=== PATIENT | female | born 1980 | race Caucasian/White ===

== ENCOUNTER 2016-12-19 17:04 | Emergency (ER) | payer MEDICARE, MEDICAID ==
[~2016-12-19] VITALS: Ht 167.6 cm; Wt 125.2 kg
[2016-12-19] MEDS ORDERED: FLUO20CA9 (17:19)
[2016-12-19] MEDS ORDERED: VITA50003 (17:19)
[2016-12-19] MEDS ORDERED: GABA-282 PO (17:19)
[2016-12-19] MEDS ORDERED: FLUT1SPR2 (17:19)
[2016-12-19] MEDS ORDERED: ALPR0.5T3 PO (17:19)
[2016-12-19] MEDS ORDERED: FERR325T (17:19)
[2016-12-19] MEDS ORDERED: METH20TA29 (17:19)
[2016-12-19] MEDS ORDERED: OMEP40CA2 (17:19)
[2016-12-19] MEDS ORDERED: ARIP1TAB6 (17:19)
[2016-12-19] MEDS ORDERED: LISI10TA4 (17:19)
[2016-12-19] MEDS ORDERED: ALBU17IN (17:19)
[2016-12-19] MEDS ORDERED: IBUP80TA (17:19)
--- NOTE | 2016-12-19 18:20 | REPUSA ---
CT of the head Clinical history: Headache. Technique: Multiple axial CT images were obtained through the head without administration of contrast . Findings: The ventricles and sulci are symmetric bilaterally. There is no evidence of acute hemorrhag e or infarct. There is no midline shift, mass effect, or extra-axial fluid collection. The osseous st ructures are unremarkable. The visualized paranasal sinuses and mastoid air cells are clear. Impression: Negative study.
[2016-12-19] MEDS ORDERED: ACETAMINOPHEN 325 MG TAB PO ONE (18:45)
[2016-12-19] MEDS ORDERED: KETOROLAC 30 MG/ML VIAL (J1885) IV ONE (20:00)
[2016-12-19] MEDS ORDERED: METOCLOPRAMIDE INJ 10MG/2ML VIAL (J2765) IV ONE (20:00)
[2016-12-19] MEDS ORDERED: NS 1,000 ML IV ONE (20:00)
[2016-12-19 21:08] VITALS: BP 120/74
== END 2016-12-19 21:29 | disposition home or self-care (01) ==
LOC: M ED 17:58
DX: G43.809 Other migraine, not intractable, without status migrainosus (principal); M79.7 Fibromyalgia; K21.9 Gastro-esophageal reflux disease without esophagitis; F41.9 Anxiety disorder, unspecified; F33.9 Major depressive disorder, recurrent, unspecified; F43.10 Post-traumatic stress disorder, unspecified; F90.9 Attention-deficit hyperactivity disorder, unspecified type; Z79.899 Other long term (current) drug therapy
CPT/HCPCS: 70450; 96374; 96375; 99282; J1885; J2765

== ENCOUNTER → 2017-05-08 | Outpatient (REF) | payer MEDICARE, MEDICAID ==
[~2017-05-08] MED LIST: ALBU17IN; ALPR0.5T3 PO; ARIP1TAB6; FERR1TAB8; FLUO20CA19; FLUT1SPR2; GABA-282 PO; IBUP80TA; LISI10TA4; METH20TA29; OMEP40CA2; VITA1CAP40
[2017-05-08 16:35] LABS: ALBUMIN 3.7 GM/DL (3.2-5.2); ALBUMIN/GLOBULIN RATIO 1.06 (1.00-1.93); ALKALINE PHOSPHATASE 113 U/L (45-117); ALT/SGPT 25 U/L (12-78); ANION GAP 9 MEQ/L (8-16); AST/SGOT 12 U/L (15-37); BILIRUBIN,TOTAL 0.3 MG/DL (0.2-1.0); BLOOD UREA NITROGEN 10 MG/DL (7-18); CALCIUM LEVEL 8.9 MG/DL (8.5-10.1); CARBON DIOXIDE LEVEL 29 MEQ/L (21-32); CHLORIDE LEVEL 106 MEQ/L (98-107); CHOLESTEROL LEVEL 229 MG/DL (<200); CREATININE FOR GFR 0.79 MG/DL (0.55-1.02); FERRITIN 37 NG/ML (8-252); GLOMERULAR FILTRATION RATE > 60.0 (>60); GLUCOSE, FASTING 85 MG/DL (70-105); SODIUM LEVEL 144 MEQ/L (136-145); TOTAL PROTEIN 7.2 GM/DL (6.4-8.2); TRIGLYCERIDES LEVEL 115 MG/DL (<150)
[2017-05-08 16:47] LABS: BASO % 0.4 % (0.0-1.0); EOS # 0.2 K/mm3 (0.0-0.50); EOS % 1.5 % (0.0-3.0); LYMPH # 2.4 K/mm3 (1.5-4.5); LYMPH % 19.9 % (24.0-44.0); MEAN CORPUSCULAR HEMOGLOBIN 28.8 pg (27.0-33.0); MEAN CORPUSCULAR VOLUME 87.2 fl (80.0-96.0); MONO # 0.4 K/mm3 (0.0-0.8); MONO % 3.8 % (0.0-5.0); NEUTROPHILS # 8.6 K/mm3 (1.8-7.7); NEUTROPHILS % 73.7 % (36.0-66.0); RED CELL DISTRIBUTION WIDTH 13.3 % (11.5-14.5); WHITE BLOOD COUNT 11.6 K/mm3 (4.0-10.0)
== END ==
LOC: M LABDRAW1 13:43
PROVIDERS: ATTEND Physician Assistant Medical
DX: E78.2 Mixed hyperlipidemia (principal); D64.9 Anemia, unspecified; F41.1 Generalized anxiety disorder; E55.9 Vitamin D deficiency, unspecified

== ENCOUNTER → 2017-09-21 | Outpatient (REF) | payer MEDICARE, MEDICAID ==
[2017-09-21 16:14] LABS: BASO # 0.1 10^3/uL (0.0-0.2); BASO % 0.5 % (0.0-1.0); EOS # 0.1 10^3/uL (0.0-0.50); EOS % 0.9 % (0.0-3.0); HEMATOCRIT 36.9 % (36.0-47.0); HEMOGLOBIN 12.1 g/dl (12.0-16.0); IMMATURE GRANULOCYTE % 0.3 % (0-0); LYMPH # 2.5 10^3/uL (1.5-4.5); MEAN CORPUSCULAR HEMOGLOBIN 28.9 pg (27.0-33.0); MEAN CORPUSCULAR HGB CONC 32.8 g/dl (32.0-36.5); MEAN CORPUSCULAR VOLUME 88.1 fl (80.0-96.0); MONO # 0.6 10^3/uL (0.0-0.8); MONO % 4.1 % (0.0-5.0); NEUTROPHILS # 10.7 10^3/uL (1.8-7.7); NEUTROPHILS % 76.2 % (36.0-66.0); PLATELET COUNT, AUTOMATED 420 10^3/uL (150-450); RED BLOOD COUNT 4.19 10^6/uL (4.00-5.40); RED CELL DISTRIBUTION WIDTH 12.7 % (11.5-14.5)
[2017-09-21 16:37] LABS: ESTIMATED AVERAGE GLUCOSE 120 MG/DL (60-110); HEMOGLOBIN A1c 5.8 %
[2017-09-21 16:47] LABS: ALBUMIN 3.9 GM/DL (3.2-5.2); ALBUMIN/GLOBULIN RATIO 1.11 (1.00-1.93); ALKALINE PHOSPHATASE 96 U/L (45-117); ALT/SGPT 21 U/L (12-78); ANION GAP 5 MEQ/L (8-16); AST/SGOT 11 U/L (7-37); BILIRUBIN,TOTAL 0.1 MG/DL (0.2-1.0); BLOOD UREA NITROGEN 12 MG/DL (7-18); CALCIUM LEVEL 8.5 MG/DL (8.5-10.1); CARBON DIOXIDE LEVEL 29 MEQ/L (21-32); CHLORIDE LEVEL 106 MEQ/L (98-107); CHOLESTEROL LEVEL 232 MG/DL (<200); CHOLESTEROL RISK RATIO 6.628 (<5); CREATININE FOR GFR 0.82 MG/DL (0.55-1.30); GLOMERULAR FILTRATION RATE > 60.0 (>60); GLUCOSE, FASTING 92 MG/DL (70-100); HDL CHOLESTEROL 35 MG/DL (>40); LDL CHOLESTEROL 172.8 MG/DL (<100); NON-HDL-C 197 MG/DL; POTASSIUM SERUM 4.5 MEQ/L (3.5-5.1); SODIUM LEVEL 140 MEQ/L (136-145); TOTAL PROTEIN 7.4 GM/DL (6.4-8.2); TRIGLYCERIDES LEVEL 121 MG/DL (<150)
[2017-09-21 17:20] LABS: TOTAL 25(OH) VITAMIN D 13.6 NG/ML (30.0-100.0); VITAMIN B12 LEVEL 344 PG/ML (247-911)
== END ==
LOC: M LABDRAW1 15:49
DX: F31.9 Bipolar disorder, unspecified (principal); Z79.899 Other long term (current) drug therapy
CPT/HCPCS: 84443

== ENCOUNTER 2017-11-22 16:32 | Emergency (ER) | payer MEDICAID, MEDICARE ==
[2017-11-22] MEDS: MORPHINE 4 MG/ML 1ML VIAL/SYRINGE (J2270) IV ×2 (18:00→21:07)
[2017-11-22] MEDS: NS 1,000 ML IV ×2 (18:00)
[2017-11-22] MEDS: MORPHINE 4 MG/ML 1ML VIAL (J2270) IV ×2 (18:00→21:07)
[2017-11-22] MEDS: ONDANSETRON 4MG/2ML VIAL (J2405) IV ×2 (18:00)
[2017-11-22] MEDS: AMPICILLIN SOD/SULBACTAM SOD 3 GM in D5W MINI-BAG PLUS 100 ML IV (18:00)
[2017-11-22 19:52] LABS: BASO # 0.1 10^3/uL (0.0-0.2); BASO % 0.4 % (0.0-1.0); EOS # 0.1 10^3/uL (0.0-0.50); EOS % 0.9 % (0.0-3.0); HEMATOCRIT 36.4 % (36.0-47.0); IMMATURE GRANULOCYTE % 0.4 % (0-3.0); LYMPH % 21.2 % (24.0-44.0); MEAN CORPUSCULAR HEMOGLOBIN 28.8 pg (27.0-33.0); MEAN CORPUSCULAR VOLUME 87.3 fl (80.0-96.0); MONO # 0.6 10^3/uL (0.0-0.8); MONO % 4.6 % (0.0-5.0); NEUTROPHILS # 10.1 10^3/uL (1.8-7.7); NEUTROPHILS % 72.5 % (36.0-66.0); PLATELET COUNT, AUTOMATED 372 10^3/uL (150-450); RED BLOOD COUNT 4.17 10^6/uL (4.00-5.40); RED CELL DISTRIBUTION WIDTH 13.1 % (11.5-14.5); WHITE BLOOD COUNT 13.9 10^3/uL (4.0-10.0)
[2017-11-22] MEDS ORDERED: ISOVUE-370 76% 100ML VIAL (Q9967) As Ordered ×2 (20:24)
[2017-11-22 20:25] LABS: ANION GAP 8 MEQ/L (8-16); BLOOD UREA NITROGEN 9 MG/DL (7-18); C REACTIVE PROTEIN QUANTITATIV 3.16 MG/DL (0.00-0.30); CALCIUM LEVEL 8.5 MG/DL (8.5-10.1); CARBON DIOXIDE LEVEL 28 MEQ/L (21-32); CHLORIDE LEVEL 108 MEQ/L (98-107); CREATININE FOR GFR 0.84 MG/DL (0.55-1.30); GLOMERULAR FILTRATION RATE > 60.0 (>60); GLUCOSE, FASTING 82 MG/DL (70-100); POTASSIUM SERUM 3.8 MEQ/L (3.5-5.1); SODIUM LEVEL 144 MEQ/L (136-145)
[2017-11-22] MEDS: ACETAMINOPH W/CODEINE #3 TAB UD PO ×2 (22:16)
== END 2017-11-22 22:35 | disposition home or self-care (01) ==
LOC: M ED 16:32
DX: K04.7 Periapical abscess without sinus (principal); K02.9 Dental caries, unspecified; S02.5XXA Fracture of tooth (traumatic), initial encounter for closed fracture; X58.XXXA Exposure to other specified factors, initial encounter; Y92.89 Other specified places as the place of occurrence of the external cause; I10 Essential (primary) hypertension; M79.7 Fibromyalgia; J45.909 Unspecified asthma, uncomplicated; K58.9 Irritable bowel syndrome, unspecified; Z79.899 Other long term (current) drug therapy
CPT/HCPCS: J2270

== ENCOUNTER 2018-06-22 05:18 | Emergency (ER) | payer MEDICAID, MEDICARE, SELFPAY ==
[2018-06-22] MEDS: NS 500 ML IV ×3 (06:30)
[2018-06-22] MEDS: MORPHINE 4 MG/ML 1ML VIAL/SYRINGE (J2270) IV ×3 (06:30)
[2018-06-22 06:47] LABS: BASO # 0.1 10^3/uL (0.0-0.2); BASO % 0.4 % (0.0-1.0); EOS # 0.1 10^3/uL (0.0-0.50); EOS % 0.5 % (0.0-3.0); HEMATOCRIT 39.1 % (36.0-47.0); HEMOGLOBIN 12.8 g/dl (12.0-15.5); IMMATURE GRANULOCYTE % 0.7 % (0-3.0); LYMPH # 2.4 10^3/uL (1.5-4.5); LYMPH % 15.8 % (24.0-44.0); MEAN CORPUSCULAR HEMOGLOBIN 28.6 pg (27.0-33.0); MEAN CORPUSCULAR HGB CONC 32.7 g/dl (32.0-36.5); MEAN CORPUSCULAR VOLUME 87.3 fl (80.0-96.0); MONO # 0.6 10^3/uL (0.0-0.8); MONO % 4.2 % (0.0-5.0); NEUTROPHILS # 11.7 10^3/uL (1.8-7.7); NEUTROPHILS % 78.4 % (36.0-66.0); PLATELET COUNT, AUTOMATED 396 10^3/uL (150-450); RED BLOOD COUNT 4.48 10^6/uL (4.00-5.40); RED CELL DISTRIBUTION WIDTH 13.7 % (11.5-14.5); WHITE BLOOD COUNT 14.9 10^3/uL (4.0-10.0)
[2018-06-22 06:52] LABS: CONTROL LINE HCG INT CTR LINE PRESENT; HCG, SERUM QUALITATIVE NEGATIVE (NEGATIVE)
[2018-06-22 06:59] LABS: LACTIC ACID SEPSIS PROTOCOL 1.7 MMOL/L (0.4-2.0)
[2018-06-22 07:05] LABS: ALBUMIN/GLOBULIN RATIO 1.08 (1.00-1.93); ALKALINE PHOSPHATASE 114 U/L (45-117); ALT/SGPT 34 U/L (12-78); ANION GAP 9 MEQ/L (8-16); AST/SGOT 26 U/L (7-37); BILIRUBIN,DIRECT < 0.1 MG/DL (0.0-0.2); BILIRUBIN,TOTAL 0.4 MG/DL (0.2-1.0); BLOOD UREA NITROGEN 7 MG/DL (7-18); CALCIUM LEVEL 9.3 MG/DL (8.5-10.1); CARBON DIOXIDE LEVEL 26 MEQ/L (21-32); CHLORIDE LEVEL 104 MEQ/L (98-107); CREATININE FOR GFR 0.94 MG/DL (0.55-1.30); GLOMERULAR FILTRATION RATE > 60.0 (>60); GLUCOSE, FASTING 109 MG/DL (70-100); LIPASE 235 U/L (73-393); POTASSIUM SERUM 4.1 MEQ/L (3.5-5.1); SODIUM LEVEL 139 MEQ/L (136-145); TOTAL PROTEIN 7.7 GM/DL (6.4-8.2)
[2018-06-22] MEDS: GASTROGRAFIN SOLUTION 30ML PO ×6 (07:05→08:20)
[2018-06-22] MEDS: METOCLOPRAMIDE INJ 10MG/2ML VIAL (J2765) IV ×3 (07:05)
[2018-06-22 07:23] LABS: APPEARANCE, URINE CLEAR (CLEAR); BACTERIA, URINE AUTO 1+ (NEGATIVE); BILIRUBIN, URINE AUTO NEGATIVE (NEGATIVE); BLOOD, URINE BLOOD 1+ (NEGATIVE); COLOR, URINE YELLOW (YELLOW); GLUCOSE, URINE (UA) AUTO NEGATIVE (NEGATIVE); KETONE, URINE AUTO NEGATIVE (NEGATIVE); LEUKOCYTE ESTERASE, URINE AUTO NEGATIVE (NEGATIVE); MUCUS, URINE SMALL (NEGATIVE); NITRITE, URINE AUTO NEGATIVE (NEGATIVE); PROTEIN, URINE AUTO NEGATIVE (NEGATIVE); RBC, URINE AUTO 6 /HPF (0-3); SQUAMOUS EPITHELIAL CELL UR AU 1 /HPF (0-6); UROBILINOGEN, URINE AUTO 0.2 mg/dL (0.0-2.0); WBC, URINE AUTO 1 /HPF (0-3)
[2018-06-22] MEDS: NORCO, ANEXSIA 5/325MG TABLET (HYDROcodone/ACETAMINOPHEN) PO ×3 (07:32)
[2018-06-22] MEDS ORDERED: ISOVUE-370 76% 100ML VIAL (Q9967) As Ordered ×3 (07:33)
[2018-06-22] MEDS: ONDANSETRON 4MG/2ML VIAL (J2405) IV ×3 (09:03)
[2018-06-22] MEDS: CIPROFLOXACIN 500 MG TAB PO ×3 (11:32)
[2018-06-22] MEDS: metroNIDAZOLE (FLAGYL) 500 MG TAB PO ×3 (11:32)
== END 2018-06-22 11:45 | disposition home or self-care (01) ==
LOC: M ED 05:18
DX: K81.9 Cholecystitis, unspecified (principal); I10 Essential (primary) hypertension; J45.909 Unspecified asthma, uncomplicated; K21.9 Gastro-esophageal reflux disease without esophagitis; F33.9 Major depressive disorder, recurrent, unspecified; M79.7 Fibromyalgia; K58.9 Irritable bowel syndrome, unspecified; Z79.899 Other long term (current) drug therapy
CPT/HCPCS: Q9963

== ENCOUNTER → 2018-07-03 | Outpatient (REF) | payer MEDICAID, SELFPAY, MEDICARE ==
[2018-07-03 18:39] LABS: BASO # 0.1 10^3/uL (0.0-0.2); BASO % 0.4 % (0.0-1.0); EOS # 0.2 10^3/uL (0.0-0.50); EOS % 1.6 % (0.0-3.0); HEMOGLOBIN 11.8 g/dl (12.0-15.5); IMMATURE GRANULOCYTE % 0.3 % (0-3.0); LYMPH # 2.4 10^3/uL (1.5-4.5); LYMPH % 17.2 % (24.0-44.0); MEAN CORPUSCULAR HEMOGLOBIN 29.1 pg (27.0-33.0); MEAN CORPUSCULAR HGB CONC 32.8 g/dl (32.0-36.5); MEAN CORPUSCULAR VOLUME 88.9 fl (80.0-96.0); MONO # 0.7 10^3/uL (0.0-0.8); NEUTROPHILS # 10.7 10^3/uL (1.8-7.7); NEUTROPHILS % 75.5 % (36.0-66.0); PLATELET COUNT, AUTOMATED 349 10^3/uL (150-450); RED BLOOD COUNT 4.05 10^6/uL (4.00-5.40); RED CELL DISTRIBUTION WIDTH 13.9 % (11.5-14.5); WHITE BLOOD COUNT 14.1 10^3/uL (4.0-10.0)
[2018-07-03 18:40] LABS: PROTHROMBIN TIME 13.3 SECONDS (12.1-14.4)
[2018-07-03 18:41] LABS: ALBUMIN 3.5 GM/DL (3.2-5.2); ALBUMIN/GLOBULIN RATIO 1.09 (1.00-1.93); ALKALINE PHOSPHATASE 97 U/L (45-117); ALT/SGPT 47 U/L (12-78); ANION GAP 7 MEQ/L (8-16); AST/SGOT 25 U/L (7-37); BILIRUBIN,TOTAL < 0.1 MG/DL (0.2-1.0); BLOOD UREA NITROGEN 10 MG/DL (7-18); CALCIUM LEVEL 8.5 MG/DL (8.5-10.1); CARBON DIOXIDE LEVEL 29 MEQ/L (21-32); CHLORIDE LEVEL 106 MEQ/L (98-107); CREATININE FOR GFR 0.92 MG/DL (0.55-1.30); GLOMERULAR FILTRATION RATE > 60.0 (>60); GLUCOSE, FASTING 125 MG/DL (70-100); POTASSIUM SERUM 4.2 MEQ/L (3.5-5.1); SODIUM LEVEL 142 MEQ/L (136-145); TOTAL PROTEIN 6.7 GM/DL (6.4-8.2)
[2018-07-03 19:38] LABS: ERYTHROCYTE SEDIMENTATION RATE 49 mm/hr (0-20)
== END ==
LOC: M LAB REF 17:44
DX: Z01.818 Encounter for other preprocedural examination (principal)
CPT/HCPCS: 80053

== ENCOUNTER 2018-07-22 06:06 | Day surgery (SDC) | payer MEDICAID, SELFPAY ==
[~2018-07-22 06:06] MED LIST changes: -ALBU17IN; -ALPR0.5T3 PO; -ARIP1TAB6; -FERR1TAB8; -FLUO20CA19; -FLUT1SPR2; -GABA-282 PO; -IBUP80TA; +LIDOCAINE 1% MDV 20ML VIAL SQ; -LISI10TA4; -METH20TA29; -OMEP40CA2; -VITA1CAP40
[2018-07-22] MEDS ORDERED: LR 1,000 ML IV ×2 (06:15→09:15)
[2018-07-22] MEDS ORDERED: PROPOFOL 200 MG/20 ML VIAL As Ordered ×2 (06:59→08:06)
[2018-07-22] MEDS ORDERED: dexameTHASONE 4 MG/ML 1ML VIAL (J1100) As Ordered ×3 (06:59)
[2018-07-22] MEDS ORDERED: ROCURONIUM BROMIDE 50 MG/5 ML VIAL As Ordered ×2 (06:59→08:45)
[2018-07-22] MEDS ORDERED: fentaNYL 250 MCG/5 ML INJECTION (J3010) As Ordered (06:59)
[2018-07-22] MEDS ORDERED: ONDANSETRON 4MG/2ML VIAL (J2405) As Ordered ×2 (06:59→08:13)
[2018-07-22] MEDS ORDERED: KETOROLAC 60 MG/2 ML VIAL (J1885) As Ordered ×2 (06:59→08:43)
[2018-07-22] MEDS ORDERED: LIDOCAINE 2% INJ 100 MG/5 ML SDV (FOR ANES.) As Ordered ×3 (06:59→08:45)
[2018-07-22] MEDS ORDERED: MIDAZOLAM INJ 2 MG/2 ML VIAL (J2250) As Ordered (07:00)
[2018-07-22 07:13] LABS: CONTROL LINE UCG INT CTR LINE PRESENT; URINE PREG TEST NEGATIVE (NEGATIVE)
[2018-07-22] MEDS: AMPICILLIN SOD/SULBACTAM SOD 3 GM in D5W MINI-BAG PLUS 100 ML IV (07:42)
[2018-07-22] MEDS ORDERED: SUGAMMADEX SODIUM 500 MG/5 ML VIAL (BRIDION) As Ordered (08:09)
[2018-07-22] MEDS ORDERED: fentaNYL 100 MCG/2 ML INJECTION (J3010) As Ordered ×2 (08:15→09:21)
[2018-07-22] MEDS: LIDOCAINE 1% SDV INJ 30 ML VIAL As Ordered (08:47)
[2018-07-22] MEDS: BUPIVACAINE HCL 0.25% 30 ML VIAL As Ordered (08:47)
[2018-07-22] MEDS ORDERED: NORCO, ANEXSIA 5/325MG TABLET (HYDROcodone/ACETAMINOPHEN) PO ×2 (09:15)
[2018-07-22] MEDS ORDERED: KETOROLAC 30 MG/ML VIAL (J1885) IV (09:15)
[2018-07-22] MEDS ORDERED: MEPERIDINE INJ 25 MG/ML VIAL (J2175) IV (09:15)
[2018-07-22] MEDS ORDERED: ONDANSETRON 4MG/2ML VIAL (J2405) IV (09:15)
[2018-07-22] MEDS: fentaNYL 100 MCG/2 ML INJECTION (J3010) IV ×4 (09:23→09:38)
[2018-07-22] MEDS: ONDANSETRON 4MG/2ML VIAL (J2405) IV (09:30)
[2018-07-22] MEDS: PERCOCET 5MG/325MG TAB PO ×2 (09:42→10:12)
[2018-07-22] MEDS: METOCLOPRAMIDE INJ 10MG/2ML VIAL (J2765) IV (10:01)
== END 2018-07-22 12:30 | disposition home or self-care (01) ==
LOC: M SDC 06:06
DX: K81.1 Chronic cholecystitis (principal); I10 Essential (primary) hypertension; J45.909 Unspecified asthma, uncomplicated; M79.7 Fibromyalgia; K21.9 Gastro-esophageal reflux disease without esophagitis; F41.9 Anxiety disorder, unspecified; F32.9 Major depressive disorder, single episode, unspecified; K44.9 Diaphragmatic hernia without obstruction or gangrene; M12.9 Arthropathy, unspecified; F31.9 Bipolar disorder, unspecified; G43.909 Migraine, unspecified, not intractable, without status migrainosus; F43.10 Post-traumatic stress disorder, unspecified; R06.83 Snoring; E66.01 Morbid (severe) obesity due to excess calories; Z68.41 Body mass index [BMI] 40.0-44.9, adult; Z79.899 Other long term (current) drug therapy; Z97.5 Presence of (intrauterine) contraceptive device
CPT/HCPCS: 47562

== ENCOUNTER → 2018-11-12 | Outpatient (REF) | payer MEDICAID ==
[~2018-11-12] MED LIST changes: +ACET30TAB PO; +ALBU17IN; +ALPR0.25; +ALPR0.5T3 PO; +ARIP1TAB6; +AUGM875T28 PO; +BUPR150T3; +CIPR-249 PO; +FERR1TAB8; +FLAG500T PO; +FLUO20CA19; +FLUT1SPR2; +GABA-843 PO; +GABA800T4; +GABA800T4 PO; +IBUP80TA; +INVE1.5T PO; -LIDOCAINE 1% MDV 20ML VIAL SQ; +LISI10TA4; +METH20TA29; +NAPR-885; +NEXP1IMP SC; +NORCOTAB PO; +OMEP40CA2; +OMEP40CA2 PO; +PALI1TAB; +TRAZ-160; +TRAZ-160 PO; +VENTAER; +VITA50005; +VYVA20CA PO; +VYVA70CA3; +VYVA70CA3 PO; +WELL100T2 PO; +WELLTAB38 PO; +XANA0.25 PO; +ZOFR4TAB14 PO
[2018-11-12 18:59] LABS: BASO # 0.1 10^3/uL (0.0-0.2); BASO % 0.5 % (0.0-1.0); EOS # 0.1 10^3/uL (0.0-0.50); EOS % 0.7 % (0.0-3.0); HEMOGLOBIN 12.9 g/dl (12.0-15.5); LYMPH # 3.2 10^3/uL (1.5-4.5); LYMPH % 20.1 % (24.0-44.0); MEAN CORPUSCULAR HEMOGLOBIN 28.5 pg (27.0-33.0); MEAN CORPUSCULAR HGB CONC 32.3 g/dl (32.0-36.5); MEAN CORPUSCULAR VOLUME 88.3 fl (80.0-96.0); MONO # 0.7 10^3/uL (0.0-0.8); MONO % 4.6 % (0.0-5.0); NEUTROPHILS # 11.6 10^3/uL (1.8-7.7); NEUTROPHILS % 73.5 % (36.0-66.0); PLATELET COUNT, AUTOMATED 394 10^3/uL (150-450); RED BLOOD COUNT 4.53 10^6/uL (4.00-5.40); WHITE BLOOD COUNT 15.7 10^3/uL (4.0-10.0)
[2018-11-12 19:08] LABS: BLOOD UREA NITROGEN 13 MG/DL (7-18); CARBON DIOXIDE LEVEL 29 MEQ/L (21-32); CHLORIDE LEVEL 104 MEQ/L (98-107); CREATININE FOR GFR 0.81 MG/DL (0.55-1.30); GLOMERULAR FILTRATION RATE > 60.0 (>60); GLUCOSE, FASTING 107 MG/DL (70-100); POTASSIUM SERUM 4.3 MEQ/L (3.5-5.1); SODIUM LEVEL 140 MEQ/L (136-145)
[2018-11-12 19:09] LABS: ALBUMIN 3.9 GM/DL (3.2-5.2); ALT/SGPT 63 U/L (12-78); BILIRUBIN,TOTAL 0.2 MG/DL (0.2-1.0); CALCIUM LEVEL 9.1 MG/DL (8.5-10.1); CHOLESTEROL LEVEL 238 MG/DL (<200); CHOLESTEROL RISK RATIO 6.611 (<5); FOLATE 5.8 NG/ML; HDL CHOLESTEROL 36 MG/DL (>40); LDL CHOLESTEROL 136 MG/DL (<100); NON-HDL-C 202 MG/DL; TOTAL 25(OH) VITAMIN D 20.2 NG/ML (30.0-100.0); TOTAL PROTEIN 7.4 GM/DL (6.4-8.2); TRIGLYCERIDES LEVEL 329 MG/DL (<150); VITAMIN B12 LEVEL 368 PG/ML
[2018-11-12 19:15] LABS: HEMOGLOBIN A1c 6.5 %
== END ==
LOC: M LAB REF 17:17
PROVIDERS: ATTEND Nurse Practitioner Family
DX: I10 Essential (primary) hypertension (principal); Z13.9 Encounter for screening, unspecified; E78.5 Hyperlipidemia, unspecified

== ENCOUNTER → 2019-02-28 | Outpatient (REF) | payer MEDICAID ==
[~2019-02-28] MED LIST changes: +ACET-716 PO; -ACET30TAB PO; +HYDR-3715 PO; -NORCOTAB PO; -TRAZ-160; -TRAZ-160 PO; +TRAZ-252; +TRAZ-252 PO
[2019-02-28 13:24] LABS: HEMOGLOBIN A1c 6.4 %
[2019-02-28 13:30] LABS: ALBUMIN 3.9 GM/DL (3.2-5.2); ALT/SGPT 40 U/L (12-78); BILIRUBIN,TOTAL 0.2 MG/DL (0.2-1.0); BLOOD UREA NITROGEN 12 MG/DL (7-18); CALCIUM LEVEL 9.3 MG/DL (8.5-10.1); CARBON DIOXIDE LEVEL 30 MEQ/L (21-32); CHLORIDE LEVEL 104 MEQ/L (98-107); CHOLESTEROL LEVEL 250 MG/DL (<200); CHOLESTEROL RISK RATIO 7.352 (<5); CREATININE FOR GFR 0.86 MG/DL (0.55-1.30); GLOMERULAR FILTRATION RATE > 60.0 (>60); GLUCOSE, FASTING 106 MG/DL (70-100); HDL CHOLESTEROL 34 MG/DL (>40); LDL CHOLESTEROL 169 MG/DL (<100); NON-HDL-C 216 MG/DL; POTASSIUM SERUM 4.1 MEQ/L (3.5-5.1); SODIUM LEVEL 138 MEQ/L (136-145); TOTAL PROTEIN 7.7 GM/DL (6.4-8.2); TRIGLYCERIDES LEVEL 235 MG/DL (<150)
== END ==
LOC: M LAB REF 12:28
PROVIDERS: ATTEND Family Medicine
DX: E11.9 Type 2 diabetes mellitus without complications (principal)

== ENCOUNTER → 2019-05-14 | Outpatient (REF) | payer MEDICAID | LOC: M LAB REF 12:35 | PROVIDERS: ATTEND Physician Assistant | DX: J02.9 Acute pharyngitis, unspecified (principal) ==

== ENCOUNTER → 2019-06-13 | Outpatient (REF) | payer MEDICAID ==
[~2019-06-13] MED LIST changes: -OMEP40CA2; -OMEP40CA2 PO; +OMEP40CA97; +OMEP40CA97 PO
[2019-06-13 17:52] LABS: ALBUMIN 3.9 GM/DL (3.2-5.2); ALT/SGPT 46 U/L (12-78); BILIRUBIN,TOTAL 0.2 MG/DL (0.2-1.0); BLOOD UREA NITROGEN 13 MG/DL (7-18); CALCIUM LEVEL 9.3 MG/DL (8.5-10.1); CARBON DIOXIDE LEVEL 27 MEQ/L (21-32); CHLORIDE LEVEL 104 MEQ/L (98-107); CHOLESTEROL LEVEL 219 MG/DL (<200); CHOLESTEROL RISK RATIO 7.064 (<5); COMPLEMENT C3 147 MG/DL (90-180); COMPLEMENT C4 24 MG/DL (10-40); CREATININE FOR GFR 0.87 MG/DL (0.55-1.30); FREE T4 1.03 NG/DL (0.76-1.46); GLOMERULAR FILTRATION RATE > 60.0 (>60); GLUCOSE, FASTING 100 MG/DL (70-100); HDL CHOLESTEROL 31 MG/DL (>40); LDL CHOLESTEROL 138 MG/DL (<100); NON-HDL-C 188 MG/DL; POTASSIUM SERUM 4.1 MEQ/L (3.5-5.1); RHEUMATOID FACTOR QUANT < 10.0 IU/ML (<15.0); SODIUM LEVEL 138 MEQ/L (136-145); TOTAL PROTEIN 7.6 GM/DL (6.4-8.2); TRIGLYCERIDES LEVEL 248 MG/DL (<150); URIC ACID 3.5 MG/DL (2.6-6.0)
== END ==
LOC: M LAB REF 17:05
PROVIDERS: ATTEND Family Medicine
DX: E11.9 Type 2 diabetes mellitus without complications (principal); Z13.228 Encounter for screening for other metabolic disorders

== ENCOUNTER → 2022-09-27 | Outpatient (REF) | payer MEDICARE, MEDICAID ==
[~2022-09-27] MED LIST changes: +AMLO1TAB24 PO; +BUPR150T12; +BUPR150T12 PO; -BUPR150T3; +ETON68IM SC; -FLUO20CA19; +FLUO20CA22; +FLUTISP NARES; +GABA-282 PO; -GABA-843 PO; +IBUP-1720 PO; +LISI10TA22; -LISI10TA4; +METF10004 PO; -NEXP1IMP SC; +OMEP-173 PO; +OMEP40CA4; +OMEP40CA4 PO; -OMEP40CA97; -OMEP40CA97 PO; +QUET50TA4 PO; +ROPI0.253 PO
[2022-09-27 18:00] LABS: ALBUMIN 3.4 G/DL (3.2-5.2); ALKALINE PHOSPHATASE 194 U/L (46-116); ALT/SGPT 90 U/L (7.0-40); AST/SGOT 99 U/L (<34); BILIRUBIN,TOTAL 0.3 MG/DL (0.3-1.2); BLOOD UREA NITROGEN 11 MG/DL (9-23); CALCIUM LEVEL 9.1 MG/DL (8.5-10.1); CARBON DIOXIDE LEVEL 31 MMOL/L (20-31); CHLORIDE LEVEL 99 MMOL/L (98-107); CHOLESTEROL LEVEL 240 MG/DL (<200); CHOLESTEROL RISK RATIO 7.27 (<5); CREATININE FOR GFR 0.69 MG/DL (0.55-1.30); GLOMERULAR FILTRATION RATE > 60.0 (>58); GLUCOSE, FASTING 171 MG/DL (60-100); LDL CHOLESTEROL 152.2 MG/DL (<100); NON-HDL-C 207 MG/DL; POTASSIUM SERUM 4.5 MMOL/L (3.5-5.1); SODIUM LEVEL 137 MMOL/L (136-145); THYROID STIMULATING HORMONE 8.944 uIU/ML (0.55-4.78); TOTAL 25(OH) VITAMIN D 17.3 NG/ML (20.0-100.0); TRIGLYCERIDES LEVEL 274 MG/DL (<150)
[2022-09-27 18:11] LABS: MAU/CREAT RATIO 31.5 MCG/MG (0.0-30.0)
[2022-09-27 18:25] LABS: HEMOGLOBIN A1c 8.6 % (4.0-6.0)
== END ==
LOC: M LAB REF 16:31
PROVIDERS: ATTEND Nurse Practitioner Family
DX: E11.9 Type 2 diabetes mellitus without complications (principal); E55.9 Vitamin D deficiency, unspecified

== ENCOUNTER → 2022-10-30 | Outpatient (CLI) | payer MEDICAID, MEDICARE ==
[~2022-10-30] MED LIST changes: +HYDR-3713 PO; +ONDA4TAB6 PO
[2022-10-30 08:45] LABS: FERRITIN 64.3 NG/ML (7.3-270.7); THYROID STIMULATING HORMONE 6.893 uIU/ML (0.55-4.78); TOTAL 25(OH) VITAMIN D 13.9 NG/ML (20.0-100.0)
[2022-10-30 08:46] LABS: THYROID PEROXIDASE ANTIBODY 40 U/ML (<60.0)
[2022-10-30 09:03] LABS: HEPATITIS B SURFACE ANTIGEN NEGATIVE (NEGATIVE)
[2022-10-30 09:16] LABS: HIV 1&2 SCREEN CENTAUR NEGATIVE (NEGATIVE)
[2022-10-30 09:24] LABS: HEPATITIS B CORE ANTIBODY IGM NEGATIVE (NEGATIVE); HEPATITIS C VIRUS ABY INDEX < 0.0 INDEX (<0.8)
[2022-10-30 11:35] LABS: HEPATITIS B SURFACE ANTIBODY POSITIVE (POSITIVE)
== END ==
LOC: M RAD 06:58
PROVIDERS: ATTEND Nurse Practitioner Family
DX: R79.89 Other specified abnormal findings of blood chemistry (principal)

== ENCOUNTER 2022-11-01 21:07 | Emergency (ER) | payer MEDICAID ==
[~2022-11-01] VITALS: Ht 167.6 cm; Wt 150.2 kg
[~2022-11-01 21:07] MED LIST changes: -HYDR-3713 PO; -ONDA4TAB6 PO
[2022-11-02] MEDS ORDERED: NORCO 5/325MG TABLET (HOME DOSE PACK) PO ONE (00:40)
[2022-11-02] MEDS ORDERED: HYDR-3713 PO (00:45)
[2022-11-02] MEDS ORDERED: ONDA4TAB6 PO (01:15)
[2022-11-02] MEDS ORDERED: ONDANSETRON 4MG ORAL DISINTEGRATING TAB PO ONE (01:15)
[2022-11-02 01:16] VITALS: BP 141/85
== END 2022-11-02 01:41 | disposition home or self-care (01) ==
LOC: M ED 21:07
DX: S89.91XA Unspecified injury of right lower leg, initial encounter (principal); W01.0XXA Fall on same level from slipping, tripping and stumbling without subsequent striking against object, initial encounter; Y92.009 Unspecified place in unspecified non-institutional (private) residence as the place of occurrence of the external cause; Y93.01 Activity, walking, marching and hiking; Y99.8 Other external cause status; J45.909 Unspecified asthma, uncomplicated; K21.9 Gastro-esophageal reflux disease without esophagitis; K58.9 Irritable bowel syndrome, unspecified; Z79.84 Long term (current) use of oral hypoglycemic drugs; Z79.899 Other long term (current) drug therapy

== ENCOUNTER → 2022-11-07 | Outpatient (CLI) | payer MEDICARE, MEDICAID ==
[~2022-11-07] MED LIST changes: +FLUT50SP17 NARES; -FLUTISP NARES; +HYDR-3713 PO; +ONDA4TAB6 PO
== END ==
LOC: M PLAIMG 13:30
PROVIDERS: ATTEND Orthopaedic Surgery
DX: M25.562 Pain in left knee (principal)

== ENCOUNTER → 2022-12-04 | Outpatient (REF) | payer MEDICARE, MEDICAID ==
[2022-12-04 18:27] LABS: ALBUMIN 3.5 G/DL (3.2-5.2); ALKALINE PHOSPHATASE 193 U/L (46-116); ALT/SGPT 96 U/L (7.0-40); AST/SGOT 122 U/L (<34); BILIRUBIN,DIRECT 0.2 MG/DL (<0.4); BILIRUBIN,TOTAL 0.4 MG/DL (0.3-1.2); BLOOD UREA NITROGEN 9 MG/DL (9-23); CALCIUM LEVEL 9.1 MG/DL (8.5-10.1); CARBON DIOXIDE LEVEL 30 MMOL/L (20-31); CHLORIDE LEVEL 101 MMOL/L (98-107); CREATININE FOR GFR 0.69 MG/DL (0.55-1.30); GLOMERULAR FILTRATION RATE > 60.0 (>58); GLUCOSE, FASTING 169 MG/DL (60-100); POTASSIUM SERUM 4.3 MMOL/L (3.5-5.1); SODIUM LEVEL 139 MMOL/L (136-145); TOTAL PROTEIN 7.7 G/DL (5.7-8.2)
== END ==
LOC: M LAB REF 16:25
PROVIDERS: ATTEND Nurse Practitioner Family
DX: E78.2 Mixed hyperlipidemia (principal); E78.00 Pure hypercholesterolemia, unspecified

== ENCOUNTER 2022-12-11 13:45 | Outpatient (RCR) | payer MEDICAID | END 2022-12-17 | LOC: M PT 13:45 | PROVIDERS: ATTEND Orthopaedic Surgery | DX: M23.221 Derangement of posterior horn of medial meniscus due to old tear or injury, right knee (principal) ==

== ENCOUNTER → 2023-05-25 | Outpatient (REF) | payer MEDICARE, MEDICAID ==
[~2023-05-25] MED LIST changes: -ROPI0.253 PO; +ROPI5TAB19 PO
[2023-05-25 18:12] LABS: APPEARANCE, URINE HAZY (CLEAR); BACTERIA, URINE AUTO NEGATIVE (NEGATIVE); BILIRUBIN, URINE AUTO NEGATIVE (NEGATIVE); BLOOD, URINE BLOOD 2+ (NEGATIVE); COLOR, URINE YELLOW (YELLOW); GLUCOSE, URINE (UA) AUTO NEGATIVE (NEGATIVE); KETONE, URINE AUTO NEGATIVE (NEGATIVE); LEUKOCYTE ESTERASE, URINE AUTO NEGATIVE (NEGATIVE); MUCUS, URINE SMALL (NEGATIVE); NITRITE, URINE AUTO NEGATIVE (NEGATIVE); PROTEIN, URINE AUTO NEGATIVE (NEGATIVE); RBC, URINE AUTO 2 /HPF (0-3); SPECIFIC GRAVITY URINE AUTO 1.024 (1.002-1.035); SQUAMOUS EPITHELIAL CELL UR AU 2 /HPF (0-6); UROBILINOGEN, URINE AUTO 0.2 mg/dL (0.0-2.0); WBC, URINE AUTO 1 /HPF (0-3)
== END ==
LOC: M LAB REF 17:44
PROVIDERS: ATTEND Nurse Practitioner Family
DX: N39.3 Stress incontinence (female) (male) (principal)

== ENCOUNTER 2023-05-31 22:01 | Emergency (ER) | payer MEDICARE, MEDICAID ==
[~2023-05-31] VITALS: Ht 167.6 cm; Wt 142.7 kg
[2023-06-01] MEDS ORDERED: methylPREDNISolone 125MG 2ML VIAL IV ONE (07:15)
[2023-06-01 07:31] LABS: BASO # 0.1 10^3/uL (0.0-0.2); BASO % 0.4 % (0.0-1.0); EOS # 0.2 10^3/uL (0.0-0.5); EOS % 1.1 % (0.0-3.0); HEMATOCRIT 39.3 % (36.0-47.0); LYMPH # 2.9 10^3/uL (1.5-5.0); LYMPH % 17.4 % (24.0-44.0); MEAN CORPUSCULAR HEMOGLOBIN 30.4 pg (27.0-33.0); MEAN CORPUSCULAR HGB CONC 33.1 g/dl (32.0-36.5); MEAN CORPUSCULAR VOLUME 91.8 fl (80.0-96.0); MONO # 0.5 10^3/uL (0.0-0.8); MONO % 3.2 % (2.0-8.0); NEUTROPHILS # 12.9 10^3/uL (1.5-8.5); NEUTROPHILS % 77.2 % (36.0-66.0); PLATELET COUNT, AUTOMATED 367 10^3/uL (150-450); RED BLOOD COUNT 4.28 10^6/uL (4.00-5.40); WHITE BLOOD COUNT 16.7 10^3/uL (4.0-10.0)
[2023-06-01 08:26] LABS: ERYTHROCYTE SEDIMENTATION RATE 68 mm/hr (0-20)
[2023-06-01] MEDS ORDERED: KETOROLAC 30 MG/ML 1ML VIAL IV ONE (08:40)
[2023-06-01] MEDS ORDERED: PRED20TA PO (10:22)
[2023-06-01 10:32] VITALS: TEMP 98.4; O2SAT 94
[2023-06-01 10:37] VITALS: BP 164/87
[2023-06-04 12:36] LABS: DRVV SCREEN 47.3 SECONDS
[2023-06-04 12:49] LABS: PTT LUPUS TYPE ANTICOAG SCREEN 1.29 (0-1.20)
[2023-06-04 12:56] LABS: DRVV CONFIRM 37.2 SECONDS; LUPUS CONFIRM RATIO 0.93
[2023-06-04 13:15] LABS: NORMALIZED RATIO 1.38 (0.00-1.20)
[2023-06-06 16:08] LABS: ANCA-ATYPICAL <1:20 titer (Neg:<1:20); ANTI DOUBLE STRAND-DNA AB 16 IU/mL (0-9); ANTINUCLEAR ANTIBODIES DIRECT Positive (Negative); CYTOPLASMIC NEUTROP AB ANCA-C <1:20 titer (Neg:<1:20); PERINUCLEAR AB ANCA-P <1:20 titer (Neg:<1:20); RNP ANTIBODIES 0.3 AI (0.0-0.9); SJOGREN'S ANTI SS-A <0.2 AI (0.0-0.9); SJOGREN'S ANTI SS-B <0.2 AI (0.0-0.9); SMITH ANTIBODIES <0.2 AI (0.0-0.9)
[2023-06-07 10:09] LABS: HEXAGONAL PHASE PHOSPHOLIPID 17 sec (0-11)
== END 2023-06-01 10:45 | disposition home or self-care (01) ==
LOC: M ED 22:01
DX: G89.29 Other chronic pain (principal); M25.569 Pain in unspecified knee; E11.9 Type 2 diabetes mellitus without complications; I10 Essential (primary) hypertension; M79.7 Fibromyalgia; G25.81 Restless legs syndrome; F12.90 Cannabis use, unspecified, uncomplicated; Z79.4 Long term (current) use of insulin; Z79.899 Other long term (current) drug therapy
CPT/HCPCS: 73564; 80047; 85025; 85598; 85613; 85652; 85730; 86037; 86038; 86140; 96374; 96375; 99284; J1885; J2930

== ENCOUNTER 2023-06-03 23:44 | Emergency (ER) | payer MEDICAID, MEDICARE ==
[~2023-06-03] VITALS: Ht 167.6 cm; Wt 142.7 kg
[~2023-06-03 23:44] MED LIST changes: +PRED20TA PO
[2023-06-04] MEDS ORDERED: NORCO, ANEXSIA 5/325MG TABLET (HYDROcodone/ACETAMINOPHEN) PO ONE (00:50)
[2023-06-04] MEDS ORDERED: ONDANSETRON 4MG TAB PO ONE (01:15)
[2023-06-04] MEDS ORDERED: NORCO 5/325MG TABLET (HOME DOSE PACK) PO ONE (02:00)
[2023-06-04 02:10] VITALS: BP 142/71; TEMP 98.8; O2SAT 93
[2023-06-04] MEDS ORDERED: ONDA4TAB6 PO (02:29)
[2023-06-04] MEDS ORDERED: ONDANSETRON 4MG ORAL DISINTEGRATING TAB PO ONE (02:30)
== END 2023-06-04 02:45 | disposition home or self-care (01) ==
LOC: M ED 23:44
DX: M25.562 Pain in left knee (principal); R51.9 Headache, unspecified; M79.7 Fibromyalgia; J45.909 Unspecified asthma, uncomplicated; K21.9 Gastro-esophageal reflux disease without esophagitis; K58.9 Irritable bowel syndrome, unspecified; F41.9 Anxiety disorder, unspecified; F32.A Depression, unspecified; E66.01 Morbid (severe) obesity due to excess calories; F12.90 Cannabis use, unspecified, uncomplicated; Z79.84 Long term (current) use of oral hypoglycemic drugs; Z79.899 Other long term (current) drug therapy; Z79.52 Long term (current) use of systemic steroids

== ENCOUNTER → 2023-06-15 | Outpatient (CLI) | payer MEDICAID, MEDICARE ==
[2023-06-15 14:04] LABS: THYROID STIMULATING HORMONE 2.464 uIU/ML (0.55-4.78); THYROXINE (T4) 8.6 UG/DL (4.5-10.9)
[2023-06-15 14:05] LABS: FREE THYROXINE INDEX 2.6 % (1.3-4.8); T UPTAKE 29.8 % (22.5-37.0)
== END ==
LOC: M RAD 12:00
PROVIDERS: ATTEND Physician Assistant Surgical
DX: M17.0 Bilateral primary osteoarthritis of knee (principal); M79.662 Pain in left lower leg; M25.462 Effusion, left knee; M71.22 Synovial cyst of popliteal space [Baker], left knee

== ENCOUNTER → 2023-08-01 | Outpatient (CLI) | payer MEDICAID ==
[~2023-08-01] MED LIST changes: +DULA3PEN; -FLUT50SP17 NARES; +FLUTISP NARES; +GABA-1171 PO; +PROHANCE 279.3MG/ML 15ML VIAL As Ordered ONE; +PROHANCE 279.3MG/ML 5ML VIAL As Ordered ONE; +ROPI0.5T33
== END ==
LOC: M RAD 14:15
PROVIDERS: ATTEND Physician Assistant Surgical
DX: M51.36 Other intervertebral disc degeneration, lumbar region (principal); M47.896 Other spondylosis, lumbar region; S83.242A Other tear of medial meniscus, current injury, left knee, initial encounter; M25.462 Effusion, left knee; M71.22 Synovial cyst of popliteal space [Baker], left knee; W18.30XA Fall on same level, unspecified, initial encounter; Y92.009 Unspecified place in unspecified non-institutional (private) residence as the place of occurrence of the external cause
CPT/HCPCS: 72148; 73723; A9576

== ENCOUNTER 2023-09-19 15:47 | Inpatient (IN) | payer MEDICARE, MEDICAID ==
[~2023-09-19] VITALS: Ht 167.6 cm; Wt 138.0 kg
[~2023-09-19 15:47] MED LIST changes: -DULA3PEN; +DULA3PEN SC; -PROHANCE 279.3MG/ML 15ML VIAL As Ordered ONE; -PROHANCE 279.3MG/ML 5ML VIAL As Ordered ONE; -ROPI0.5T33; +ROPI0.5T33 PO
[2023-09-19] MEDS: IPRATROPIUM 0.5MG/ALBUTEROL 2.5MG INH SOL UD 3ML (DUONEB) NEB ONE (16:52)
[2023-09-19] MEDS: dexAMETHasone 20MG/5ML VIAL IV ONE (16:57)
[2023-09-19] MEDS: ACETAMINOPHEN TAB 650MG DOSE (2X325MG) PO ONE (16:57)
[2023-09-19] MEDS: NS 500 ML IV ONE (16:59)
[2023-09-19 17:04] LABS: BASO # 0.1 10^3/uL (0.0-0.2); BASO % 0.6 % (0.0-1.0); EOS # 0.1 10^3/uL (0.0-0.5); EOS % 0.6 % (0.0-3.0); HEMOGLOBIN 15.2 g/dl (12.0-15.5); LYMPH % 17.7 % (24.0-44.0); MEAN CORPUSCULAR HEMOGLOBIN 29.6 pg (27.0-33.0); MEAN CORPUSCULAR VOLUME 89.7 fl (80.0-96.0); MONO % 8.7 % (2.0-8.0); NEUTROPHILS % 71.4 % (36.0-66.0); PLATELET COUNT, AUTOMATED 330 10^3/uL (150-450); RED BLOOD COUNT 5.13 10^6/uL (4.00-5.40); WHITE BLOOD COUNT 11.2 10^3/uL (4.0-10.0)
[2023-09-19 17:23] LABS: CK-MB VALUE MASS < 1.0 NG/ML (<3.6); LIPASE 42 U/L (12-53)
[2023-09-19 17:26] LABS: THYROID STIMULATING HORMONE 4.822 uIU/ML (0.55-4.78)
[2023-09-19 17:27] LABS: FREE T4 1.08 NG/DL (0.89-1.76)
[2023-09-19 17:31] LABS: CPK CREATINE PHOSPHOKINASE 56 U/L (34-145); MB/CK RELATIVE INDEX 1.78 (< OR =4)
[2023-09-19 17:32] LABS: RSV AMPLIFICATION NEGATIVE (NEGATIVE)
[2023-09-19 17:42] LABS: ALBUMIN 3.7 G/DL (3.2-5.2); ALKALINE PHOSPHATASE 166 U/L (46-116); ALT/SGPT 53 U/L (7.0-40); AST/SGOT 52 U/L (<34); BILIRUBIN,DIRECT 0.1 MG/DL (<0.4); BILIRUBIN,TOTAL 0.4 MG/DL (0.3-1.2); BLOOD UREA NITROGEN 11 MG/DL (9-23); CALCIUM LEVEL 9.2 MG/DL (8.5-10.1); CARBON DIOXIDE LEVEL 28 MMOL/L (20-31); CHLORIDE LEVEL 102 MMOL/L (98-107); CREATININE FOR GFR 0.97 MG/DL (0.55-1.30); GLOMERULAR FILTRATION RATE > 60.0 (>58); GLUCOSE, FASTING 119 MG/DL (60-100); POTASSIUM SERUM 3.5 MMOL/L (3.5-5.1); SODIUM LEVEL 135 MMOL/L (136-145); TOTAL PROTEIN 7.6 G/DL (5.7-8.2)
[2023-09-19 17:48] LABS: HCG, SERUM QUALITATIVE NEGATIVE (NEGATIVE)
[2023-09-19 17:52] LABS: INR 1.05; PROTHROMBIN TIME 13.4 SECONDS (12.5-14.5)
[2023-09-19 17:53] LABS: PARTIAL THROMBOPLASTIN TIME 35.3 SECONDS (24.8-34.2)
[2023-09-19] MEDS ORDERED: ISOVUE-370 76% 100ML VIAL As Ordered ONE (17:58)
[2023-09-19 18:57] LABS: CK-MB VALUE MASS < 1.0 NG/ML (<3.6)
[2023-09-19 18:58] LABS: CPK CREATINE PHOSPHOKINASE 44 U/L (34-145); MB/CK RELATIVE INDEX 2.27 (< OR =4)
[2023-09-19] MEDS ORDERED: MED REC IN PROGRESS XX SCH (19:25)
[2023-09-19] MEDS: PIPERACILLIN/TAZOBACTAM SOD 4.5 GM in D5W MINI-BAG PLUS 50 ML IV ONE (20:01)
[2023-09-19] MEDS ORDERED: LEVALBUTEROL 1.25MG 0.5ML CONCENTRATE NEB INH PRN (20:25)
[2023-09-19] MEDS ORDERED: GLUCOSE 4GM CHEW TABLET PO PRN (20:25)
[2023-09-19] MEDS ORDERED: GLUCAGON INJ 1MG VIAL SC PRN (20:25)
[2023-09-19] MEDS ORDERED: DEXTROSE 50% 50ML SYRINGE IV PRN (20:25)
[2023-09-19] MEDS ORDERED: IBUP200T46 PO (20:57)
[2023-09-19] MEDS ORDERED: ROPI0.5T33 PO (20:57)
[2023-09-19] MEDS ORDERED: OMEP40CA5 PO (20:58)
[2023-09-19] MEDS ORDERED: GABA-1171 PO (20:58)
[2023-09-19] MEDS ORDERED: HOME MED LIST COMPLETE! XX SCH (21:00)
[2023-09-19 21:11] LABS: PROCALCITONIN 0.12 ng/ml
[2023-09-19] MEDS: DOXYCYCLINE HYCLATE 100MG TABLET PO SCH (21:41)
[2023-09-19] MEDS: INSULIN LISPRO (NovoLOG) PER UNIT SC SCH (21:50)
[2023-09-19 22:48] VITALS: BP 161/87; TEMP 98; O2SAT 96
[2023-09-19] MEDS: REMDESIVIR 200 MG in NS 250 ML IV ONE (23:41)
[2023-09-19] MEDS: ACETAMINOPHEN TAB 650MG DOSE (2X325MG) PO PRN (23:47)
[2023-09-20] VITALS (9 sets, daily range): BP systolic 133–162; BP diastolic 58–88; TEMP 97.9–99.3; O2SAT 85–99
[2023-09-20] MEDS: cefTRIAXone SOD 1 GM in D5W MINI-BAG PLUS 50 ML IV SCH (02:30)
[2023-09-20] MEDS: ONDANSETRON 4MG 2ML VIAL IV PRN (03:00)
[2023-09-20 05:08] LABS: HEMATOCRIT 37.2 % (36.0-47.0); MEAN CORPUSCULAR HGB CONC 33.6 g/dl (32.0-36.5); MEAN CORPUSCULAR VOLUME 89.4 fl (80.0-96.0); PLATELET COUNT, AUTOMATED 287 10^3/uL (150-450); RED BLOOD COUNT 4.16 10^6/uL (4.00-5.40); WHITE BLOOD COUNT 9.1 10^3/uL (4.0-10.0)
[2023-09-20 05:23] LABS: HEMOGLOBIN 12.5 g/dl (12.0-15.5)
[2023-09-20 05:37] LABS: ALBUMIN 3.2 G/DL (3.2-5.2); ALKALINE PHOSPHATASE 142 U/L (46-116); ALT/SGPT 39 U/L (7.0-40); AST/SGOT 29 U/L (<34); BILIRUBIN,TOTAL 0.2 MG/DL (0.3-1.2); BLOOD UREA NITROGEN 9 MG/DL (9-23); CALCIUM LEVEL 8.3 MG/DL (8.5-10.1); CARBON DIOXIDE LEVEL 27 MMOL/L (20-31); CHLORIDE LEVEL 101 MMOL/L (98-107); GLOMERULAR FILTRATION RATE > 60.0 (>58); GLUCOSE, FASTING 237 MG/DL (60-100); SODIUM LEVEL 135 MMOL/L (136-145)
[2023-09-20] MEDS: INSULIN LISPRO (NovoLOG) PER UNIT SC SCH (08:12)
[2023-09-20] MEDS: ENOXAPARIN 40MG/0.4ML SYRINGE (J1650 PER 10MG) SC SCH (08:14)
[2023-09-20] MEDS: amLODIPine 5 MG TAB PO SCH (08:14)
[2023-09-20] MEDS ORDERED: rOPINIRole 0.25 MG TAB(REQUIP) PO PRN (12:20)
[2023-09-20] MEDS: guaiFENesin ER TABLET 600 MG TAB PO SCH (12:32)
[2023-09-20] MEDS: METOPROLOL TART 12.5 MG PER 1/2 TAB PO SCH (12:32)
[2023-09-20] MEDS: OMEPRAZOLE 20MG CAP PO SCH (12:33)
[2023-09-20] MEDS: LEVALBUTEROL 1.25MG 0.5ML CONCENTRATE NEB INH SCH (14:59)
[2023-09-20] MEDS: GABAPENTIN 100 MG CAP PO SCH (16:07)
[2023-09-20] MEDS: rOPINIRole 0.25 MG TAB(REQUIP) PO SCH (20:26)
[2023-09-20] MEDS: LEVEMIR (INSULIN DETEMIR) 1 UNITS/0.01ML SC SCH (20:26)
[2023-09-20] MEDS: REMDESIVIR 100 MG in NS 250 ML IV SCH (23:48)
[2023-09-20] MEDS: RAMELTEON 8 MG TAB (ROZEREM) PO PRN (23:48)
[2023-09-21] VITALS (11 sets, daily range): BP systolic 118–153; BP diastolic 60–99; TEMP 97–98.9; O2SAT 88–97
[2023-09-21 04:58] LABS: BASO % 0.2 % (0.0-1.0); EOS % 0.1 % (0.0-3.0); HEMATOCRIT 35.4 % (36.0-47.0); HEMOGLOBIN 11.6 g/dl (12.0-15.5); LYMPH % 24.5 % (24.0-44.0); MEAN CORPUSCULAR HEMOGLOBIN 29.7 pg (27.0-33.0); MEAN CORPUSCULAR HGB CONC 32.8 g/dl (32.0-36.5); MEAN CORPUSCULAR VOLUME 90.8 fl (80.0-96.0); MONO # 0.9 10^3/uL (0.0-0.8); MONO % 7.4 % (2.0-8.0); NEUTROPHILS # 8.3 10^3/uL (1.5-8.5); NEUTROPHILS % 67.3 % (36.0-66.0); PLATELET COUNT, AUTOMATED 264 10^3/uL (150-450); WHITE BLOOD COUNT 12.3 10^3/uL (4.0-10.0)
[2023-09-21 05:16] LABS: BLOOD UREA NITROGEN 12 MG/DL (9-23); CALCIUM LEVEL 8.6 MG/DL (8.5-10.1); CARBON DIOXIDE LEVEL 31 MMOL/L (20-31); CHLORIDE LEVEL 104 MMOL/L (98-107); CREATININE FOR GFR 0.81 MG/DL (0.55-1.30); GLOMERULAR FILTRATION RATE > 60.0 (>58); GLUCOSE, FASTING 196 MG/DL (60-100); POTASSIUM SERUM 4.4 MMOL/L (3.5-5.1); SODIUM LEVEL 141 MMOL/L (136-145)
[2023-09-21] MEDS: FLUCONAZOLE 50MG TABLET PO ONE (11:20)
[2023-09-21] MEDS: MORPHINE 2 MG/ML 1ML VIAL IV ONE (21:54)
[2023-09-22 05:31] VITALS: BP 104/63; TEMP 97.5; O2SAT 94
[2023-09-22 08:01] VITALS: BP 145/92
[2023-09-22] MEDS ORDERED: METO1TAB87 PO (10:16)
[2023-09-22] MEDS ORDERED: MUCI600T31 PO (10:16)
[2023-09-22] MEDS ORDERED: VENTAER INH (10:16)
[2023-09-22] MEDS ORDERED: PRED20TA PO (10:18)
[2023-09-22 10:40] VITALS: BP 136/91
== END 2023-09-22 13:00 | disposition home or self-care (01) | DRG 177 ==
LOC: M ED 15:47 → M ED INP 20:24 → ENRESERV 22:13 → M ICU 22:39 → M MSPAV 09-21 15:00
PROVIDERS: ADMIT Family Medicine; ATTEND Internal Medicine
PROC: XW033E5 Introduction of Remdesivir Anti-infective into Peripheral Vein, Percutaneous Approach, New Technology Group 5 (ICD-10-PCS; principal; 2023-09-19)
PROC: 3E0333Z Introduction of Anti-inflammatory into Peripheral Vein, Percutaneous Approach (ICD-10-PCS; 2023-09-19)
DX: U07.1 COVID-19 (principal); J96.01 Acute respiratory failure with hypoxia; J12.82 Pneumonia due to coronavirus disease 2019; Z68.43 Body mass index [BMI] 50.0-59.9, adult; E11.9 Type 2 diabetes mellitus without complications; I10 Essential (primary) hypertension; D72.829 Elevated white blood cell count, unspecified; M79.7 Fibromyalgia; K21.9 Gastro-esophageal reflux disease without esophagitis; F32.A Depression, unspecified; M32.9 Systemic lupus erythematosus, unspecified; F41.9 Anxiety disorder, unspecified; F43.10 Post-traumatic stress disorder, unspecified; R00.0 Tachycardia, unspecified; J45.909 Unspecified asthma, uncomplicated; G47.33 Obstructive sleep apnea (adult) (pediatric); E66.9 Obesity, unspecified; R07.81 Pleurodynia; Z79.899 Other long term (current) drug therapy; Z90.49 Acquired absence of other specified parts of digestive tract

== ENCOUNTER 2023-09-30 09:28 | Emergency (ER) | payer MEDICARE, MEDICAID ==
[~2023-09-30] VITALS: Ht 167.6 cm; Wt 137.7 kg
[~2023-09-30 09:28] MED LIST changes: +IBUP200T46 PO; +METO1TAB87 PO; +MUCI600T31 PO; +OMEP40CA5 PO; +VENTAER INH
[2023-09-30 10:10] LABS: VENOUS BASE EXCESS 1.3 (-2.0-2.0); VENOUS HCO3 26.6 MMOL/L (23.0-27.0); VENOUS O2 SATURATION 89.8 % (60.0-80.0); VENOUS PARTIAL PRESSURE CO2 44.6 mmHg (38.0-50.0); VENOUS PARTIAL PRESSURE O2 56.6 mmHg (30.0-50.0); VENOUS PH 7.394 UNITS (7.330-7.430); VENOUS STANDARD HCO3 25.5 MMOL/L
[2023-09-30 10:14] VITALS: BP 177/104
[2023-09-30] MEDS: METOPROLOL TART 25 MG TABLET PO ONE (10:14)
[2023-09-30] MEDS: KETOROLAC 30 MG/ML 1ML VIAL IV ONE (10:14)
[2023-09-30 10:17] LABS: BASO # 0.1 10^3/uL (0.0-0.2); BASO % 0.5 % (0.0-1.0); EOS # 0.1 10^3/uL (0.0-0.5); EOS % 0.7 % (0.0-3.0); HEMATOCRIT 38.9 % (36.0-47.0); HEMOGLOBIN 12.9 g/dl (12.0-15.5); LYMPH # 2.4 10^3/uL (1.5-5.0); LYMPH % 16.7 % (24.0-44.0); MEAN CORPUSCULAR HEMOGLOBIN 29.8 pg (27.0-33.0); MEAN CORPUSCULAR HGB CONC 33.2 g/dl (32.0-36.5); MEAN CORPUSCULAR VOLUME 89.8 fl (80.0-96.0); MONO # 0.8 10^3/uL (0.0-0.8); MONO % 5.3 % (2.0-8.0); NEUTROPHILS # 11.2 10^3/uL (1.5-8.5); NEUTROPHILS % 76.4 % (36.0-66.0); PLATELET COUNT, AUTOMATED 315 10^3/uL (150-450); RED BLOOD COUNT 4.33 10^6/uL (4.00-5.40); WHITE BLOOD COUNT 14.6 10^3/uL (4.0-10.0)
[2023-09-30 10:24] LABS: ERYTHROCYTE SEDIMENTATION RATE 78 mm/hr (0-20)
[2023-09-30 10:29] LABS: INR 0.97; PROTHROMBIN TIME 12.6 SECONDS (12.5-14.5)
[2023-09-30 10:38] LABS: LIPASE 38 U/L (12-53)
[2023-09-30 10:40] LABS: ALBUMIN 3.6 G/DL (3.2-5.2); ALKALINE PHOSPHATASE 152 U/L (46-116); ALT/SGPT 48 U/L (7.0-40); AST/SGOT 36 U/L (<34); BILIRUBIN,DIRECT 0.1 MG/DL (<0.4); BILIRUBIN,TOTAL 0.4 MG/DL (0.3-1.2); BLOOD UREA NITROGEN 10 MG/DL (9-23); CALCIUM LEVEL 9.6 MG/DL (8.5-10.1); CARBON DIOXIDE LEVEL 29 MMOL/L (20-31); CHLORIDE LEVEL 99 MMOL/L (98-107); CK-MB VALUE MASS < 1.0 NG/ML (<3.6); CPK CREATINE PHOSPHOKINASE 60 U/L (34-145); CREATININE FOR GFR 0.64 MG/DL (0.55-1.30); GLOMERULAR FILTRATION RATE > 60.0 (>58); GLUCOSE, FASTING 144 MG/DL (60-100); MB/CK RELATIVE INDEX 1.66 (< OR =4); POTASSIUM SERUM 3.8 MMOL/L (3.5-5.1); SODIUM LEVEL 136 MMOL/L (136-145); TOTAL PROTEIN 7.2 G/DL (5.7-8.2)
[2023-09-30 10:52] LABS: PROCALCITONIN <0.04 ng/ml
[2023-09-30] MEDS ORDERED: ISOVUE-370 76% 100ML VIAL As Ordered ONE (11:03)
[2023-09-30] MEDS: IPRATROPIUM 0.5MG/ALBUTEROL 2.5MG INH SOL UD 3ML (DUONEB) NEB ONE (11:05)
[2023-09-30] MEDS: METOCLOPRAMIDE INJ 10MG/2ML VIAL IV ONE (12:01)
[2023-09-30 13:17] VITALS: O2SAT 93
[2023-09-30 13:30] VITALS: BP 137/74
[2023-09-30 13:48] VITALS: O2SAT 93
[2023-09-30 13:54] VITALS: TEMP 97.7
== END 2023-09-30 14:03 | disposition home or self-care (01) ==
LOC: M ED 09:28
DX: R07.9 Chest pain, unspecified (principal); E11.9 Type 2 diabetes mellitus without complications; I10 Essential (primary) hypertension; J45.909 Unspecified asthma, uncomplicated; G47.33 Obstructive sleep apnea (adult) (pediatric); M32.9 Systemic lupus erythematosus, unspecified; Z87.891 Personal history of nicotine dependence; Z79.899 Other long term (current) drug therapy; Z79.51 Long term (current) use of inhaled steroids; Z79.52 Long term (current) use of systemic steroids
CPT/HCPCS: 71045; 71275; 74177; 80048; 80076; 82550; 82553; 82803; 83605; 83690; 83880; 84145; 84443; 84484; 85025; 85610; 85652; 87040; 87486; 87581; 87633; 87798; 93005; 93041; 93971; 94640; 94760; 96374; 96375; 99285; J1885; J2765; Q9967

== ENCOUNTER 2023-10-12 00:20 | Observation (INO) | payer MEDICARE, MEDICAID ==
[~2023-10-12] VITALS: Ht 167.6 cm; Wt 143.2 kg
[2023-10-12] VITALS (7 sets, daily range): BP systolic 148–162; BP diastolic 89–93; TEMP 97.2–98.6; O2SAT 90–95
[2023-10-12] MEDS: NS 1,000 ML IV ONE (02:47)
[2023-10-12] MEDS: KETOROLAC 30 MG/ML 1ML VIAL IV ONE (02:47)
[2023-10-12] MEDS: ONDANSETRON 4MG 2ML VIAL IV ONE ×2 (02:47→07:38)
[2023-10-12 03:11] LABS: BASO # 0.1 10^3/uL (0.0-0.2); BASO % 0.4 % (0.0-1.0); EOS # 0.2 10^3/uL (0.0-0.5); EOS % 1.5 % (0.0-3.0); HEMATOCRIT 36.1 % (36.0-47.0); MEAN CORPUSCULAR HEMOGLOBIN 30.4 pg (27.0-33.0); MEAN CORPUSCULAR HGB CONC 33.2 g/dl (32.0-36.5); MEAN CORPUSCULAR VOLUME 91.4 fl (80.0-96.0); MONO # 0.5 10^3/uL (0.0-0.8); MONO % 3.9 % (2.0-8.0); NEUTROPHILS # 9.6 10^3/uL (1.5-8.5); NEUTROPHILS % 71.7 % (36.0-66.0); PLATELET COUNT, AUTOMATED 300 10^3/uL (150-450); RED BLOOD COUNT 3.95 10^6/uL (4.00-5.40); WHITE BLOOD COUNT 13.4 10^3/uL (4.0-10.0)
[2023-10-12 04:08] LABS: ALBUMIN 3.6 G/DL (3.2-5.2); ALKALINE PHOSPHATASE 145 U/L (46-116); ALT/SGPT 50 U/L (7.0-40); AST/SGOT 42 U/L (<34); BILIRUBIN,DIRECT < 0.1 MG/DL (<0.4); BILIRUBIN,TOTAL 0.2 MG/DL (0.3-1.2); BLOOD UREA NITROGEN 14 MG/DL (9-23); CALCIUM LEVEL 9.3 MG/DL (8.5-10.1); CARBON DIOXIDE LEVEL 26 MMOL/L (20-31); CHLORIDE LEVEL 103 MMOL/L (98-107); CK-MB VALUE MASS < 1.0 NG/ML (<3.6); CPK CREATINE PHOSPHOKINASE 65 U/L (34-145); CREATININE FOR GFR 0.68 MG/DL (0.55-1.30); GLOMERULAR FILTRATION RATE > 60.0 (>58); GLUCOSE, FASTING 159 MG/DL (60-100); MB/CK RELATIVE INDEX 1.53 (< OR =4); POTASSIUM SERUM 3.9 MMOL/L (3.5-5.1); SODIUM LEVEL 138 MMOL/L (136-145); THYROID STIMULATING HORMONE 4.494 uIU/ML (0.55-4.78); TOTAL PROTEIN 7.1 G/DL (5.7-8.2)
[2023-10-12] MEDS ORDERED: ISOVUE-370 76% 100ML VIAL As Ordered ONE (05:08)
[2023-10-12] MEDS: methylPREDNISolone 125MG 2ML VIAL IV ONE (06:16)
[2023-10-12] MEDS: IPRATROPIUM 0.5MG/ALBUTEROL 2.5MG INH SOL UD 3ML (DUONEB) NEB ONE ×2 (06:22)
[2023-10-12] MEDS: MORPHINE 2 MG/ML 1ML VIAL IV PRN (07:21)
[2023-10-12 08:47] LABS: ABG BASE EXCESS -0.9 (-2.0-2.0); ABG HCO3 25.3 MMOL/L (22.0-26.0); ABG O2 SATURATION 97.9 % (95.0-99.0); ABG PARTIAL PRESSURE CO2 47.9 mmHg (35.0-45.0); ABG PARTIAL PRESSURE O2 114.8 mmHg (75.0-100.0); ABG STANDARD HCO3 23.8 MMOL/L. (22.0-26.0); ABG TOTAL CO2 26.7 MMOL/L (22.0-29.0)
[2023-10-12 08:56] LABS: PROCALCITONIN 0.07 ng/ml
[2023-10-12] MEDS: DOCUSATE SODIUM 100MG CAPSULE PO SCH (09:00)
[2023-10-12] MEDS ORDERED: METO25TA4 PO (09:06)
[2023-10-12] MEDS ORDERED: AMLO1TAB24 PO (09:06)
[2023-10-12] MEDS ORDERED: VENTAER INH (09:06)
[2023-10-12] MEDS ORDERED: ROPI0.5T33 PO (09:06)
[2023-10-12] MEDS ORDERED: VITA100065 PO (09:09)
[2023-10-12] MEDS ORDERED: HOME MED LIST COMPLETE! XX SCH (09:10)
[2023-10-12] MEDS ORDERED: MOM 30ML SUSPENSION UDC PO PRN (09:30)
[2023-10-12 10:04] LABS: INR 0.99; PROTHROMBIN TIME 12.8 SECONDS (12.5-14.5)
[2023-10-12 10:05] LABS: PARTIAL THROMBOPLASTIN TIME 27.9 SECONDS (24.8-34.2)
[2023-10-12] MEDS ORDERED: ALBUTEROL 90 MCG/ACT 8GM HFA INHALER INH PRN (10:05)
[2023-10-12] MEDS ORDERED: DEXTROSE 50% 50ML SYRINGE IV PRN (10:20)
[2023-10-12] MEDS ORDERED: GLUCOSE 4GM CHEW TABLET PO PRN (10:20)
[2023-10-12] MEDS ORDERED: GLUCAGON INJ 1MG VIAL SC PRN (10:20)
[2023-10-12] MEDS: OMEPRAZOLE 20MG CAP PO SCH (12:36)
[2023-10-12] MEDS: methylPREDNISolone 125MG 2ML VIAL IV SCH (12:36)
[2023-10-12] MEDS: INSULIN LISPRO (NovoLOG) PER UNIT SC SCH ×2 (12:37→21:05)
[2023-10-12] MEDS: METOPROLOL TART 12.5 MG PER 1/2 TAB PO SCH (12:37)
[2023-10-12] MEDS: ACETAMINOPHEN TAB 650MG DOSE (2X325MG) PO PRN (12:37)
[2023-10-12] MEDS: IPRATROPIUM 0.5MG/ALBUTEROL 2.5MG INH SOL UD 3ML (DUONEB) NEB SCH (12:41)
[2023-10-12] MEDS ORDERED: KETOROLAC 30 MG/ML 1ML VIAL IV PRN (13:40)
[2023-10-12] MEDS: GABAPENTIN 100 MG CAP PO SCH (14:47)
[2023-10-12] MEDS: KETOROLAC 30 MG/ML 1ML VIAL IV PRN (14:48)
[2023-10-12] MEDS: RIVAROXABAN 10MG TAB (XARELTO) PO SCH (17:40)
[2023-10-12] MEDS: rOPINIRole 0.25 MG TAB(REQUIP) PO SCH (21:02)
[2023-10-12] MEDS: amLODIPine 5 MG TAB PO SCH (21:04)
[2023-10-13 02:59] VITALS: O2SAT 94
[2023-10-13 04:31] LABS: RSV AMPLIFICATION NEGATIVE (NEGATIVE)
[2023-10-13 06:00] VITALS: BP 141/90; TEMP 97.2; O2SAT 97
[2023-10-13 06:26] LABS: HEMATOCRIT 35.4 % (36.0-47.0); HEMOGLOBIN 11.5 g/dl (12.0-15.5); MEAN CORPUSCULAR HEMOGLOBIN 29.9 pg (27.0-33.0); MEAN CORPUSCULAR HGB CONC 32.5 g/dl (32.0-36.5); MEAN CORPUSCULAR VOLUME 92.2 fl (80.0-96.0); PLATELET COUNT, AUTOMATED 303 10^3/uL (150-450); RED BLOOD COUNT 3.84 10^6/uL (4.00-5.40); WHITE BLOOD COUNT 21.2 10^3/uL (4.0-10.0)
[2023-10-13 06:56] LABS: BLOOD UREA NITROGEN 15 MG/DL (9-23); CALCIUM LEVEL 9.7 MG/DL (8.5-10.1); CARBON DIOXIDE LEVEL 29 MMOL/L (20-31); CHLORIDE LEVEL 101 MMOL/L (98-107); CREATININE FOR GFR 0.64 MG/DL (0.55-1.30); GLOMERULAR FILTRATION RATE > 60.0 (>58); GLUCOSE, FASTING 301 MG/DL (60-100); POTASSIUM SERUM 4.6 MMOL/L (3.5-5.1); SODIUM LEVEL 137 MMOL/L (136-145)
[2023-10-13] MEDS: PANTOPRAZOLE 40MG VIAL IV SCH (08:10)
[2023-10-13] MEDS: FUROSEMIDE 40MG/4ML VIAL IV ONE (08:10)
[2023-10-13] MEDS: GABAPENTIN 100 MG CAP PO ONE (08:41)
[2023-10-13] MEDS ORDERED: ENOXAPARIN 40MG/0.4ML SYRINGE (J1650 PER 10MG) SC SCH (09:00)
[2023-10-13] MEDS ORDERED: OXYC-517 PO (10:59)
[2023-10-13] MEDS ORDERED: GABA-282 PO (10:59)
[2023-10-13] MEDS ORDERED: PRED10TA2 PO (11:01)
[2023-10-13] MEDS ORDERED: MIRA3350 PO (12:36)
[2023-10-13] MEDS ORDERED: ONDA-83 PO (12:36)
[2023-10-13] MEDS ORDERED: GABAPENTIN 300 MG CAP PO SCH (16:00)
== END 2023-10-13 14:26 | disposition home or self-care (01) ==
LOC: M ED 00:20 → M ED INP 00:21 → M MSPAV 10:25
PROVIDERS: ADMIT Student in an Organized Health Care Education/Training Program; ATTEND Student in an Organized Health Care Education/Training Program
DX: J45.909 Unspecified asthma, uncomplicated (principal); R06.00 Dyspnea, unspecified; R09.02 Hypoxemia; R07.1 Chest pain on breathing; M32.9 Systemic lupus erythematosus, unspecified; E11.9 Type 2 diabetes mellitus without complications; I10 Essential (primary) hypertension; K21.9 Gastro-esophageal reflux disease without esophagitis; F32.A Depression, unspecified; F41.9 Anxiety disorder, unspecified; F43.10 Post-traumatic stress disorder, unspecified; Z86.16 Personal history of COVID-19; E66.9 Obesity, unspecified; Z68.43 Body mass index [BMI] 50.0-59.9, adult; D72.829 Elevated white blood cell count, unspecified; R21 Rash and other nonspecific skin eruption; M48.03 Spinal stenosis, cervicothoracic region; M54.13 Radiculopathy, cervicothoracic region; G25.81 Restless legs syndrome; Z79.899 Other long term (current) drug therapy; Z79.85 Long-term (current) use of injectable non-insulin antidiabetic drugs; Z79.52 Long term (current) use of systemic steroids
CPT/HCPCS: 36415; 36600; 71046; 71275; 72141; 80048; 80076; 82550; 82553; 82803; 83605; 83880; 84145; 84443; 84484; 85025; 85027; 85610; 85652; 85730; 86140; 87040; 87486; 87581; 87631; 87633; 87798; 93005; 94640; 96374; 96375; 96376; 99285; C9113; G0378; J1815; J1885; J1940; J2405; J2930; Q9967

== ENCOUNTER 2024-02-12 15:44 | Emergency (ER) | payer MEDICARE, MEDICAID ==
[~2024-02-12] VITALS: Ht 167.6 cm; Wt 148.6 kg
[~2024-02-12 15:44] MED LIST changes: +FLUO-365; -FLUO20CA22; +METO25TA4 PO; +MIRA3350 PO; +ONDA-282 PO; +ONDA-83 PO; -ONDA4TAB6 PO; +OXYC-517 PO; +PRED10TA2 PO; +VITA100065 PO
[2024-02-12 17:54] LABS: BASO # 0.1 10^3/uL (0.0-0.2); BASO % 0.6 % (0.0-1.0); EOS # 0.1 10^3/uL (0.0-0.5); HEMATOCRIT 39.2 % (36.0-47.0); HEMOGLOBIN 12.7 g/dl (12.0-15.5); MEAN CORPUSCULAR HEMOGLOBIN 28.7 pg (27.0-33.0); MEAN CORPUSCULAR HGB CONC 32.4 g/dl (32.0-36.5); MEAN CORPUSCULAR VOLUME 88.5 fl (80.0-96.0); MONO # 0.7 10^3/uL (0.0-0.8); NEUTROPHILS # 11.2 10^3/uL (1.5-8.5); NEUTROPHILS % 78.6 % (36.0-66.0); PLATELET COUNT, AUTOMATED 320 10^3/uL (150-450); RED BLOOD COUNT 4.43 10^6/uL (4.00-5.40); WHITE BLOOD COUNT 14.3 10^3/uL (4.0-10.0)
[2024-02-12 17:58] LABS: HCG, SERUM QUALITATIVE NEGATIVE (NEGATIVE)
[2024-02-12 18:00] LABS: LIPASE 60 U/L (12-53)
[2024-02-12 18:03] LABS: ALBUMIN 3.5 G/DL (3.2-5.2); ALKALINE PHOSPHATASE 246 U/L (46-116); ALT/SGPT 69 U/L (7.0-40); AST/SGOT 87 U/L (<34); BILIRUBIN,DIRECT 0.1 MG/DL (<0.4); BILIRUBIN,TOTAL 0.3 MG/DL (0.3-1.2); BLOOD UREA NITROGEN 8 MG/DL (9-23); CALCIUM LEVEL 8.9 MG/DL (8.5-10.1); CARBON DIOXIDE LEVEL 28 MMOL/L (20-31); CHLORIDE LEVEL 99 MMOL/L (98-107); CREATININE FOR GFR 0.57 MG/DL (0.55-1.30); GLOMERULAR FILTRATION RATE > 60.0 (>58); GLUCOSE, FASTING 290 MG/DL (60-100); POTASSIUM SERUM 3.7 MMOL/L (3.5-5.1); SODIUM LEVEL 134 MMOL/L (136-145); TOTAL PROTEIN 7.1 G/DL (5.7-8.2)
[2024-02-12 18:15] LABS: ERYTHROCYTE SEDIMENTATION RATE 92 mm/hr (0-20)
[2024-02-12] MEDS ORDERED: ISOVUE-370 76% 100ML VIAL As Ordered ONE (21:55)
[2024-02-12 22:13] LABS: CK-MB VALUE MASS < 1.0 NG/ML (<3.6)
[2024-02-12 22:14] LABS: CPK CREATINE PHOSPHOKINASE 66 U/L (34-145); MB/CK RELATIVE INDEX 1.51 (< OR =4)
[2024-02-12] MEDS: KETOROLAC 30 MG/ML 1ML VIAL IV ONE (22:16)
[2024-02-12] MEDS ORDERED: AMPICILLIN SOD/SULBACTAM SOD 1.5 GM in D5W MINI-BAG PLUS 50 ML IV ONE (23:35)
[2024-02-12] MEDS: ONDANSETRON 4MG 2ML VIAL IV ONE (23:41)
[2024-02-13 00:36] VITALS: BP 164/85; TEMP 99; O2SAT 96
[2024-02-13] MEDS ORDERED: AMOX875T2 PO (01:33)
[2024-02-13] MEDS ORDERED: FLUC150T9 PO (01:33)
[2024-02-13] MEDS ORDERED: PRED20TA PO (01:33)
== END 2024-02-13 01:42 | disposition home or self-care (01) ==
LOC: M ED 15:44
DX: K04.7 Periapical abscess without sinus (principal); M32.14 Glomerular disease in systemic lupus erythematosus; M71.22 Synovial cyst of popliteal space [Baker], left knee; R22.43 Localized swelling, mass and lump, lower limb, bilateral; E11.9 Type 2 diabetes mellitus without complications; I10 Essential (primary) hypertension; J45.909 Unspecified asthma, uncomplicated; E78.5 Hyperlipidemia, unspecified; K21.9 Gastro-esophageal reflux disease without esophagitis; K58.9 Irritable bowel syndrome, unspecified; Z79.4 Long term (current) use of insulin; Z79.899 Other long term (current) drug therapy
CPT/HCPCS: 70487; 71045; 80048; 80076; 81001; 82550; 82553; 83605; 83690; 83880; 84484; 84703; 85025; 85652; 86140; 87040; 87086; 93005; 93970; 96374; 96375; 99284; J1885; J2405; Q9967

== ENCOUNTER 2024-02-15 13:55 | Emergency (ER) | payer MEDICARE, MEDICAID ==
[~2024-02-15] VITALS: Ht 167.6 cm; Wt 145.8 kg
[~2024-02-15 13:55] MED LIST changes: +AMOX875T2 PO; +FLUC150T9 PO
[2024-02-15] MEDS: IPRATROPIUM 0.5MG/ALBUTEROL 2.5MG INH SOL UD 3ML (DUONEB) NEB ONE (16:06)
[2024-02-15] MEDS: methylPREDNISolone 125MG 2ML VIAL IV ONE (16:29)
[2024-02-15] MEDS: NS 1,000 ML IV ONE (16:29)
[2024-02-15 16:36] LABS: BASO # 0.1 10^3/uL (0.0-0.2); BASO % 0.6 % (0.0-1.0); EOS # 0.1 10^3/uL (0.0-0.5); EOS % 0.5 % (0.0-3.0); HEMATOCRIT 37.8 % (36.0-47.0); HEMOGLOBIN 12.2 g/dl (12.0-15.5); LYMPH # 2.9 10^3/uL (1.5-5.0); LYMPH % 18.1 % (24.0-44.0); MEAN CORPUSCULAR HGB CONC 32.3 g/dl (32.0-36.5); MONO # 0.8 10^3/uL (0.0-0.8); MONO % 5.2 % (2.0-8.0); NEUTROPHILS # 11.9 10^3/uL (1.5-8.5); NEUTROPHILS % 74.3 % (36.0-66.0); PLATELET COUNT, AUTOMATED 323 10^3/uL (150-450); WHITE BLOOD COUNT 15.9 10^3/uL (4.0-10.0)
[2024-02-15 16:40] LABS: ERYTHROCYTE SEDIMENTATION RATE 83 mm/hr (0-20)
[2024-02-15 17:03] LABS: ALBUMIN 3.6 G/DL (3.2-5.2); ALKALINE PHOSPHATASE 252 U/L (46-116); ALT/SGPT 69 U/L (7.0-40); AST/SGOT 125 U/L (<34); BILIRUBIN,DIRECT 0.1 MG/DL (<0.4); BILIRUBIN,TOTAL 0.3 MG/DL (0.3-1.2); BLOOD UREA NITROGEN 12 MG/DL (9-23); CALCIUM LEVEL 9.2 MG/DL (8.5-10.1); CARBON DIOXIDE LEVEL 31 MMOL/L (20-31); CHLORIDE LEVEL 100 MMOL/L (98-107); CREATININE FOR GFR 0.54 MG/DL (0.55-1.30); GLOMERULAR FILTRATION RATE > 60.0 (>58); GLUCOSE, FASTING 303 MG/DL (60-100); POTASSIUM SERUM 3.8 MMOL/L (3.5-5.1); SODIUM LEVEL 137 MMOL/L (136-145); TOTAL PROTEIN 7.4 G/DL (5.7-8.2)
[2024-02-15] MEDS: DOXYCYCLINE HYCLATE 100MG TABLET PO ONE (17:41)
[2024-02-15] MEDS: cefTRIAXone SOD 1 GM in D5W MINI-BAG PLUS 50 ML IV ONE (17:42)
[2024-02-15] MEDS: ALBUTEROL SULFATE 2.5MG/0.5ML INH NEB SOLN NEB ONE ×2 (17:49)
[2024-02-15 18:15] VITALS: O2SAT 93
[2024-02-15 18:36] VITALS: BP 141/83; TEMP 98.1; O2SAT 93
[2024-02-18] MEDS ORDERED: AMLO1TAB25 PO (08:19)
[2024-02-18] MEDS ORDERED: CETI-24 PO (08:19)
[2024-02-18] MEDS ORDERED: AMOX875T2 PO (08:19)
[2024-02-18] MEDS ORDERED: PRED20TA PO (08:19)
[2024-02-18] MEDS ORDERED: VITA100093 PO (08:19)
== END 2024-02-15 18:39 | disposition home or self-care (01) ==
LOC: M ED 13:55
DX: J45.901 Unspecified asthma with (acute) exacerbation (principal); J06.9 Acute upper respiratory infection, unspecified; E11.9 Type 2 diabetes mellitus without complications; K21.9 Gastro-esophageal reflux disease without esophagitis; G47.33 Obstructive sleep apnea (adult) (pediatric); I10 Essential (primary) hypertension; E78.5 Hyperlipidemia, unspecified; F12.10 Cannabis abuse, uncomplicated; F10.10 Alcohol abuse, uncomplicated; Z91.09 Other allergy status, other than to drugs and biological substances; Z79.51 Long term (current) use of inhaled steroids; Z79.2 Long term (current) use of antibiotics; Z79.52 Long term (current) use of systemic steroids; Z79.899 Other long term (current) drug therapy
CPT/HCPCS: 71046; 80048; 80076; 83605; 83880; 85025; 85652; 86140; 87040; 87486; 87581; 87633; 87798; 94640; 94760; 96361; 96365; 96374; 99284; J0696; J2919

== ENCOUNTER → 2024-03-25 | Outpatient (CLI) | payer MEDICARE, MEDICAID ==
[~2024-03-25] MED LIST changes: +ALCOPAD25 TOP; +ALPR0.25 PO; +AMLO1TAB25 PO; +BLOOKIT21 XX; +CETI-24 PO; +GABA600T4 PO; +GLUC1TES2 XX; +HUMA100I5 SC; +INSU100I48 SQ; +IPRA0.00 INH; +LANC30MI XX; +LANTINJ4 SC; +LASI40TA9 PO; +NOVOINJ3 SC; +PEN-308 SC; +SOMA350T PO; +SYMB16INH INH; +VITA100093 PO
== END ==
LOC: M SLEEP 20:00
PROVIDERS: ATTEND Internal Medicine Critical Care Medicine
DX: G47.33 Obstructive sleep apnea (adult) (pediatric) (principal)

== ENCOUNTER → 2024-04-02 | Outpatient (CLI) | payer MEDICARE, MEDICAID ==
[2024-04-02 13:38] LABS: ALBUMIN 3.6 G/DL (3.2-5.2); ALKALINE PHOSPHATASE 169 U/L (46-116); ALT/SGPT 43 U/L (7.0-40); AST/SGOT 30 U/L (<34); BILIRUBIN,TOTAL 0.3 MG/DL (0.3-1.2); BLOOD UREA NITROGEN 9 MG/DL (9-23); CALCIUM LEVEL 8.8 MG/DL (8.5-10.1); CARBON DIOXIDE LEVEL 31 MMOL/L (20-31); CHLORIDE LEVEL 104 MMOL/L (98-107); CREATININE FOR GFR 0.62 MG/DL (0.55-1.30); GLOMERULAR FILTRATION RATE > 60.0 (>58); GLUCOSE, FASTING 123 MG/DL (60-100); POTASSIUM SERUM 4.2 MMOL/L (3.5-5.1); RHEUMATOID FACTOR QUANT 7.5 IU/ML (<14); SODIUM LEVEL 137 MMOL/L (136-145); TOTAL PROTEIN 7.2 G/DL (5.7-8.2)
[2024-04-04 00:52] LABS: CYCLIC CITRULLINATED PEPTIDE < 16 UNITS (<20)
[2024-04-04 11:03] LABS: ANA PATTERN Nuclear, Homogeneous (NEGATIVE); ANA PATTERN 2 Nuclear, Speckled; ANA SCREEN, IFA POSITIVE (NEGATIVE)
== END ==
LOC: M PLALAB 11:16
PROVIDERS: ATTEND Student in an Organized Health Care Education/Training Program
DX: Z87.898 Personal history of other specified conditions (principal)

== ENCOUNTER → 2024-04-24 | Outpatient (REF) | payer MEDICARE, MEDICAID ==
[~2024-04-24] MED LIST changes: +GABA-1490 PO; +GABA-1635; +GABA-1635 PO; -GABA600T4 PO; -GABA800T4; -GABA800T4 PO
== END ==
LOC: M SFHCPLAZ 18:49
PROVIDERS: ATTEND Student in an Organized Health Care Education/Training Program
DX: M32.9 Systemic lupus erythematosus, unspecified (principal)

== ENCOUNTER → 2024-04-25 | Outpatient (CLI) | payer MEDICARE, MEDICAID ==
[2024-04-25 18:01] LABS: BASO # 0.1 10^3/uL (0.0-0.2); BASO % 0.4 % (0.0-1.0); EOS # 0.1 10^3/uL (0.0-0.5); EOS % 0.8 % (0.0-3.0); HEMATOCRIT 34.8 % (36.0-47.0); LYMPH # 2.4 10^3/uL (1.5-5.0); LYMPH % 17.7 % (24.0-44.0); MEAN CORPUSCULAR HEMOGLOBIN 28.6 pg (27.0-33.0); MEAN CORPUSCULAR HGB CONC 31.6 g/dl (32.0-36.5); MEAN CORPUSCULAR VOLUME 90.6 fl (80.0-96.0); MONO # 0.6 10^3/uL (0.0-0.8); MONO % 4.2 % (2.0-8.0); NEUTROPHILS # 10.5 10^3/uL (1.5-8.5); NEUTROPHILS % 76.2 % (36.0-66.0); PLATELET COUNT, AUTOMATED 344 10^3/uL (150-450); RED BLOOD COUNT 3.84 10^6/uL (4.00-5.40); WHITE BLOOD COUNT 13.8 10^3/uL (4.0-10.0)
[2024-04-25 18:26] LABS: ALBUMIN 3.7 G/DL (3.2-5.2); ALKALINE PHOSPHATASE 148 U/L (46-116); ALT/SGPT 37 U/L (7.0-40); AST/SGOT 28 U/L (<34); BILIRUBIN,TOTAL 0.2 MG/DL (0.3-1.2); BLOOD UREA NITROGEN 12 MG/DL (9-23); CALCIUM LEVEL 9.2 MG/DL (8.5-10.1); CARBON DIOXIDE LEVEL 31 MMOL/L (20-31); CHLORIDE LEVEL 101 MMOL/L (98-107); CREATININE FOR GFR 0.73 MG/DL (0.55-1.30); GLOMERULAR FILTRATION RATE > 60.0 (>58); GLUCOSE, FASTING 185 MG/DL (60-100); POTASSIUM SERUM 4.3 MMOL/L (3.5-5.1); SODIUM LEVEL 137 MMOL/L (136-145); TOTAL PROTEIN 7.2 G/DL (5.7-8.2)
== END ==
LOC: M PLALAB 16:31
PROVIDERS: ATTEND Student in an Organized Health Care Education/Training Program
DX: M32.9 Systemic lupus erythematosus, unspecified (principal)

== ENCOUNTER → 2024-07-22 | Outpatient (REF) | payer MEDICARE, MEDICAID ==
[~2024-07-22] MED LIST changes: +GABA-1172 PO; -GABA-282 PO
[2024-07-22 17:10] LABS: APPEARANCE, URINE CLEAR (CLEAR); BACTERIA, URINE AUTO NEGATIVE (NEGATIVE); BILIRUBIN, URINE AUTO NEGATIVE (NEGATIVE); BLOOD, URINE BLOOD NEGATIVE (NEGATIVE); COLOR, URINE YELLOW (YELLOW); GLUCOSE, URINE (UA) AUTO NEGATIVE (NEGATIVE); KETONE, URINE AUTO NEGATIVE (NEGATIVE); LEUKOCYTE ESTERASE, URINE AUTO NEGATIVE (NEGATIVE); NITRITE, URINE AUTO NEGATIVE (NEGATIVE); PROTEIN, URINE AUTO NEGATIVE (NEGATIVE); RBC, URINE AUTO 0 /HPF (0-3); SPECIFIC GRAVITY URINE AUTO 1.013 (1.002-1.035); SQUAMOUS EPITHELIAL CELL UR AU 0 /HPF (0-6); UROBILINOGEN, URINE AUTO 0.2 mg/dL (0.0-2.0); WBC, URINE AUTO 0 /HPF (0-3)
[2024-07-22 17:20] LABS: BASO # 0.1 10^3/uL (0.0-0.2); BASO % 0.4 % (0.0-1.0); EOS # 0.1 10^3/uL (0.0-0.5); EOS % 0.7 % (0.0-3.0); HEMOGLOBIN 13.3 g/dl (12.0-15.5); LYMPH # 2.5 10^3/uL (1.5-5.0); LYMPH % 15.6 % (24.0-44.0); MEAN CORPUSCULAR HEMOGLOBIN 28.6 pg (27.0-33.0); MEAN CORPUSCULAR HGB CONC 32.4 g/dl (32.0-36.5); MEAN CORPUSCULAR VOLUME 88.2 fl (80.0-96.0); MONO # 0.7 10^3/uL (0.0-0.8); MONO % 4.4 % (2.0-8.0); NEUTROPHILS # 12.4 10^3/uL (1.5-8.5); NEUTROPHILS % 78.5 % (36.0-66.0); RED BLOOD COUNT 4.65 10^6/uL (4.00-5.40); WHITE BLOOD COUNT 15.8 10^3/uL (4.0-10.0)
[2024-07-22 17:21] LABS: TOTAL PROTEIN,RANDOM URINE 9.9 MG/DL (0.0-14.0)
[2024-07-22 17:26] LABS: CREATININE,RANDOM URINE 67.8 MG/DL
[2024-07-22 17:40] LABS: ERYTHROCYTE SEDIMENTATION RATE 78 mm/hr (0-20)
[2024-07-22 20:32] LABS: IRON (FE) 54 UG/DL (50-170); PERCENT SATURATION 13.3 % (13.2-45.0); TOTAL IRON BINDING CAPACITY 406 UG/DL (250-425)
[2024-07-22 20:33] LABS: ALBUMIN 3.9 G/DL (3.2-5.2); ALKALINE PHOSPHATASE 150 U/L (35-104); ALT/SGPT 34 U/L (7.0-40); AST/SGOT 32 U/L (<34); BILIRUBIN,DIRECT < 0.1 MG/DL (<0.4); BILIRUBIN,TOTAL 0.2 MG/DL (0.3-1.2); BLOOD UREA NITROGEN 11 MG/DL (9-23); C REACTIVE PROTEIN QUANTITATIV 3.56 MG/DL (<1.0); CARBON DIOXIDE LEVEL 29 MMOL/L (20-31); CHLORIDE LEVEL 102 MMOL/L (98-107); COMPLEMENT C3 232.6 MG/DL (90.0-170.0); COMPLEMENT C4 27.9 MG/DL (12-36); GLOMERULAR FILTRATION RATE > 60.0 (>58); GLUCOSE, FASTING 99 MG/DL (60-100); MAGNESIUM LEVEL 1.8 MG/DL (1.8-2.4); PHOSPHORUS LEVEL 4.2 MG/DL (2.5-4.9); POTASSIUM SERUM 4.1 MMOL/L (3.5-5.1); SODIUM LEVEL 138 MMOL/L (136-145); TOTAL PROTEIN 8.2 G/DL (5.7-8.2)
[2024-07-22 20:35] LABS: FERRITIN 35.1 NG/ML (7.3-270.7); TOTAL 25(OH) VITAMIN D 22.8 NG/ML (20.0-100.0); VITAMIN B12 LEVEL 529 PG/ML (211-911)
[2024-07-22 20:36] LABS: CPK CREATINE PHOSPHOKINASE 57 U/L (34-145)
== END ==
LOC: M SFHCRHEU 14:49
PROVIDERS: ATTEND Internal Medicine
DX: R76.8 Other specified abnormal immunological findings in serum (principal); Z79.899 Other long term (current) drug therapy; M79.18 Myalgia, other site; M25.50 Pain in unspecified joint

== ENCOUNTER → 2024-09-17 | Outpatient (CLI) | payer MEDICARE, MEDICAID | LOC: M PLALAB 13:32 | PROVIDERS: ATTEND Internal Medicine | DX: M25.50 Pain in unspecified joint (principal); M19.079 Primary osteoarthritis, unspecified ankle and foot; M19.041 Primary osteoarthritis, right hand; M19.042 Primary osteoarthritis, left hand ==

== ENCOUNTER 2024-09-23 14:58 | Emergency (ER) | payer MEDICARE, MEDICAID ==
[~2024-09-23] VITALS: Ht 167.6 cm; Wt 143.2 kg
[2024-09-23] MEDS ORDERED: HYDR200T46 (15:13)
[2024-09-23] MEDS ORDERED: CYCL5TAB4 (15:13)
[2024-09-23] MEDS ORDERED: TIRZ7.5P (15:13)
[2024-09-23] MEDS ORDERED: ERGO500029 (15:13)
[2024-09-23] MEDS ORDERED: MELO7.5T35 (15:13)
[2024-09-23] MEDS ORDERED: HYDR-3713 PO (15:14)
[2024-09-23 16:23] LABS: BASO # 0.1 10^3/uL (0.0-0.2); BASO % 0.4 % (0.0-1.0); EOS # 0.1 10^3/uL (0.0-0.5); EOS % 0.5 % (0.0-3.0); HEMATOCRIT 37.6 % (36.0-47.0); HEMOGLOBIN 12.4 g/dl (12.0-15.5); LYMPH # 2.5 10^3/uL (1.5-5.0); LYMPH % 15.2 % (24.0-44.0); MEAN CORPUSCULAR HEMOGLOBIN 28.4 pg (27.0-33.0); MEAN CORPUSCULAR VOLUME 86.2 fl (80.0-96.0); MONO # 0.6 10^3/uL (0.0-0.8); MONO % 3.7 % (2.0-8.0); NEUTROPHILS % 79.6 % (36.0-66.0); PLATELET COUNT, AUTOMATED 356 10^3/uL (150-450); RED BLOOD COUNT 4.36 10^6/uL (4.00-5.40); WHITE BLOOD COUNT 16.3 10^3/uL (4.0-10.0)
[2024-09-23 16:28] LABS: ERYTHROCYTE SEDIMENTATION RATE 80 mm/hr (0-20)
[2024-09-23 16:40] LABS: BLOOD UREA NITROGEN 9 MG/DL (9-23); CALCIUM LEVEL 9.2 MG/DL (8.5-10.1); CARBON DIOXIDE LEVEL 27 MMOL/L (20-31); CHLORIDE LEVEL 104 MMOL/L (98-107); CREATININE FOR GFR 0.59 MG/DL (0.55-1.30); GLOMERULAR FILTRATION RATE > 60.0 (>58); GLUCOSE, FASTING 114 MG/DL (60-100); POTASSIUM SERUM 3.8 MMOL/L (3.5-5.1); SODIUM LEVEL 141 MMOL/L (136-145)
[2024-09-23] MEDS: KETOROLAC 30 MG/ML 1ML VIAL IV ONE (17:02)
[2024-09-23 17:46] LABS: URIC ACID 3.8 MG/DL (3.1-7.8)
[2024-09-23] MEDS ORDERED: PRED20TA PO (19:55)
[2024-09-23 20:04] VITALS: BP 127/62; TEMP 99.1
[2024-09-23] MEDS: methylPREDNISolone 125MG 2ML VIAL IV ONE (20:05)
[2024-09-23 20:06] VITALS: O2SAT 95
[2024-09-23] MEDS: ONDANSETRON 4MG ORAL DISINTEGRATING TAB PO ONE (20:06)
[2024-09-23] MEDS: NORCO, ANEXSIA 5/325MG TABLET (HYDROcodone/ACETAMINOPHEN) PO ONE (20:06)
== END 2024-09-23 20:25 | disposition home or self-care (01) ==
LOC: M ED 14:58
DX: M10.041 Idiopathic gout, right hand (principal); I10 Essential (primary) hypertension; E78.5 Hyperlipidemia, unspecified; K21.9 Gastro-esophageal reflux disease without esophagitis; E11.9 Type 2 diabetes mellitus without complications; Z91.09 Other allergy status, other than to drugs and biological substances; Z79.1 Long term (current) use of non-steroidal anti-inflammatories (NSAID); Z79.51 Long term (current) use of inhaled steroids; Z79.4 Long term (current) use of insulin; Z79.52 Long term (current) use of systemic steroids; Z79.899 Other long term (current) drug therapy
CPT/HCPCS: 36415; 73110; 80048; 83605; 84550; 85025; 85652; 86140; 87040; 96374; 96375; 99284; J1885; J2919

== ENCOUNTER → 2024-10-16 | Outpatient (CLI) | payer MEDICARE, MEDICAID ==
[~2024-10-16] MED LIST changes: +CYCL5TAB4; +ERGO500029; +HYDR200T46; +MELO7.5T35; +TIRZ7.5P
== END ==
LOC: M CARPUL 08:32
PROVIDERS: ATTEND Internal Medicine Cardiovascular Disease
DX: R06.02 Shortness of breath (principal); R07.9 Chest pain, unspecified; R74.01 Elevation of levels of liver transaminase levels

== ENCOUNTER → 2024-10-21 | Outpatient (CLI) | payer MEDICARE, MEDICAID | LOC: M PLALAB 12:04 | PROVIDERS: ATTEND Student in an Organized Health Care Education/Training Program | DX: E55.9 Vitamin D deficiency, unspecified (principal); R76.0 Raised antibody titer ==

== ENCOUNTER → 2025-02-26 | Outpatient (CLI) | payer MEDICARE, MEDICAID ==
[~2025-02-26] MED LIST changes: +AUGM500T34 PO
== END ==
LOC: M PLAIMG 15:06
PROVIDERS: ATTEND Internal Medicine
DX: M79.642 Pain in left hand (principal); M25.532 Pain in left wrist

== ENCOUNTER 2025-04-19 21:01 | Emergency (ER) | payer MEDICARE, MEDICAID ==
[~2025-04-19] VITALS: Ht 167.6 cm; Wt 129.2 kg
[2025-04-19 21:39] LABS: VENOUS BASE EXCESS -2.6 (-2.0-2.0); VENOUS HCO3 22.5 MMOL/L (23.0-27.0); VENOUS O2 SATURATION 71.9 % (60.0-80.0); VENOUS PARTIAL PRESSURE CO2 40.3 mmHg (38.0-50.0); VENOUS PARTIAL PRESSURE O2 38.3 mmHg (30.0-50.0); VENOUS PH 7.365 UNITS (7.330-7.430); VENOUS STANDARD HCO3 21.7 MMOL/L; VENOUS TOTAL CO2 23.8 MMOL/L (24.0-28.0)
[2025-04-19 21:48] LABS: BASO # 0.1 10^3/uL (0.0-0.2); BASO % 0.4 % (0.0-1.0); EOS # 0.1 10^3/uL (0.0-0.5); EOS % 0.7 % (0.0-3.0); LYMPH # 3.2 10^3/uL (1.5-5.0); LYMPH % 19.7 % (24.0-44.0); MONO # 0.7 10^3/uL (0.0-0.8); MONO % 4.4 % (2.0-8.0); NEUTROPHILS # 12.1 10^3/uL (1.5-8.5); NEUTROPHILS % 74.5 % (36.0-66.0); PLATELET COUNT, AUTOMATED 384 10^3/uL (150-450)
[2025-04-19 21:56] LABS: KETONE, URINE AUTO RFX NEGATIVE (NEGATIVE); LEUKOCYTE ESTERASE UR AUTO RFX NEGATIVE (NEGATIVE); NITRITE, URINE AUTO RFX NEGATIVE (NEGATIVE); RBC, URINE AUTO RFX 0 /HPF (0-3); SQUAM EPITHELIAL CELL UR AURFX 1 /HPF (0-6); WBC, URINE AUTO RFX 0 /HPF (0-3)
[2025-04-19 22:14] LABS: ESTIMATED AVERAGE GLUCOSE 123.0 MG/DL (60-110)
[2025-04-19 22:16] LABS: ALT/SGPT 22 U/L (7.0-40); AST/SGOT 20 U/L (<34)
[2025-04-19 23:10] VITALS: TEMP 100
[2025-04-19 23:45] LABS: ACETONE/KETONE 0.05 MMOL/L (0.02-0.27)
[2025-04-19 23:49] LABS: OSMOLALITY SERUM 299 MOSM/KG (275-295)
[2025-04-20 02:16] VITALS: BP 162/95
[2025-04-20] MEDS: ACETAMINOPHEN 325 MG TAB PO ONE (02:45)
[2025-04-20 03:01] VITALS: O2SAT 88
== END 2025-04-20 03:06 | disposition left against medical advice (07) ==
LOC: M ED 21:01
DX: E11.649 Type 2 diabetes mellitus with hypoglycemia without coma (principal); Z91.09 Other allergy status, other than to drugs and biological substances; Z79.1 Long term (current) use of non-steroidal anti-inflammatories (NSAID); Z79.51 Long term (current) use of inhaled steroids; Z79.2 Long term (current) use of antibiotics; Z79.4 Long term (current) use of insulin; Z79.899 Other long term (current) drug therapy; Z53.9 Procedure and treatment not carried out, unspecified reason

== ENCOUNTER 2025-05-24 21:29 | Emergency (ER) | payer MEDICARE, MEDICAID ==
[~2025-05-24] VITALS: Ht 167.6 cm; Wt 124.1 kg
[2025-05-25 00:30] VITALS: TEMP 98.5
[2025-05-25 00:40] LABS: BASO # 0.1 10^3/uL (0.0-0.2); BASO % 0.6 % (0.0-1.0); EOS # 0.1 10^3/uL (0.0-0.5); EOS % 0.8 % (0.0-3.0); LYMPH # 3.6 10^3/uL (1.5-5.0); LYMPH % 25.2 % (24.0-44.0); MONO # 0.7 10^3/uL (0.0-0.8); MONO % 4.5 % (2.0-8.0); NEUTROPHILS # 9.8 10^3/uL (1.5-8.5); NEUTROPHILS % 68.6 % (36.0-66.0); PLATELET COUNT, AUTOMATED 370 10^3/uL (150-450)
[2025-05-25 00:46] LABS: KETONE, URINE AUTO RFX NEGATIVE (NEGATIVE); LEUKOCYTE ESTERASE UR AUTO RFX NEGATIVE (NEGATIVE); NITRITE, URINE AUTO RFX NEGATIVE (NEGATIVE); RBC, URINE AUTO RFX 0 /HPF (0-3); SQUAM EPITHELIAL CELL UR AURFX 1 /HPF (0-6); WBC, URINE AUTO RFX 1 /HPF (0-3)
[2025-05-25 00:54] LABS: ESTIMATED AVERAGE GLUCOSE 111.0 MG/DL (60-110)
[2025-05-25 01:01] LABS: ACETONE/KETONE 0.09 MMOL/L (0.02-0.27); ALT/SGPT 19 U/L (7.0-40); AST/SGOT 25 U/L (<34); CALCIUM LEVEL 9.4 MG/DL (8.5-10.1); CARBON DIOXIDE LEVEL 28 MMOL/L (20-31); CHLORIDE LEVEL 103 MMOL/L (98-107); CREATININE FOR GFR 0.85 MG/DL (0.55-1.30); GLOMERULAR FILTRATION RATE 86.1 (>58); POTASSIUM SERUM 4.3 MMOL/L (3.5-5.1); SODIUM LEVEL 141 MMOL/L (136-145)
[2025-05-25 01:13] LABS: HCG, SERUM QUALITATIVE NEGATIVE (NEGATIVE)
[2025-05-25 01:33] LABS: OSMOLALITY SERUM 292 MOSM/KG (275-295)
[2025-05-25] MEDS ORDERED: ISOVUE-370 76% 100 ML VIAL As Ordered ONE (04:21)
[2025-05-25 06:00] VITALS: BP 154/78; O2SAT 94
== END 2025-05-25 06:36 | disposition home or self-care (01) ==
LOC: M ED 21:29
DX: E10.649 Type 1 diabetes mellitus with hypoglycemia without coma (principal); R51.9 Headache, unspecified; M54.2 Cervicalgia; Z91.09 Other allergy status, other than to drugs and biological substances; Z79.1 Long term (current) use of non-steroidal anti-inflammatories (NSAID); Z79.51 Long term (current) use of inhaled steroids; Z79.2 Long term (current) use of antibiotics; Z79.4 Long term (current) use of insulin; Z79.899 Other long term (current) drug therapy; Z79.52 Long term (current) use of systemic steroids
CPT/HCPCS: 36415; 70450; 70498; 71275; 80048; 80076; 81001; 82010; 83036; 83690; 83930; 84703; 85025; 93005; 99284; Q9967